=== PATIENT | female | born 1980 | race Caucasian/White ===

== ENCOUNTER 2016-08-18 14:10 | Emergency (ER) | payer OTHER ==
[2016-08-18] MEDS ORDERED: RX INFO: IV CONTRAST WAS GIVEN 1 EACH MISC MISCELLANE PRN (14:25)
[2016-08-18 14:49] VITALS: RESP 16
[2016-08-18 14:49] LABS: Basophils # (A) 0.2 k/uL (0-0.2); Basophils % (A) 2 %; CH 29.2; CHCM 34.7; Eosinophils # (A) 0.2 k/uL (0-0.7); Eosinophils % (A) 3 %; HCT 37.6 % (34.0-46.0); HDW 2.88; HGB 12.4 gm/dL (11.4-16.0); Luc # (Auto) 0.17; Luc % (Auto) 2; Lymphocytes # (A) 3.1 k/uL (1.0-4.8); Lymphocytes % (A) 43 %; MCHC 33.1 g/dL (31.0-37.0); MCV 84.5 fL (80.0-100.0); Mean Platelet Volume 6.8; Monocytes # (A) 0.4 k/uL (0-1.0); Monocytes % (A) 6 %; Neutrophils # (A) 3.2 k/uL (1.3-7.7); Neutrophils % (A) 44 %; RBC 4.44 m/uL (3.80-5.40); RDW 13.1 % (11.5-15.5); WBC 7.2 k/uL (3.8-10.6); WBC (Perox) 7.29
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
[2016-08-18 14:56] LABS: INR 1.1 (<1.1); Partial Thromboplastin Time 22.3 sec (22.0-30.0); Prothrombin Time 10.6 sec (9.0-12.0)
[2016-08-18 14:57] LABS: ALT 82 U/L (9-52); AST 135 U/L (14-36); Alcohol <10 mg/dL; Alkaline Phosphatase 66 U/L (38-126); Amylase <30 U/L (30-110); Anion Gap 10 mmol/L; Blood Urea Nitrogen 17 mg/dL (7-17); Calcium 9.3 mg/dL (8.4-10.2); Carbon Dioxide 25 mmol/L (22-30); Chloride 107 mmol/L (98-107); Glucose 100 mg/dL (74-99); Non-African American GFR(MDRD) >60 (>60 ml/min/1.73 sqM); Potassium 4.4 mmol/L (3.5-5.1); Sodium 142 mmol/L (137-145); Total Bilirubin 0.6 mg/dL (0.2-1.3); Total Protein 7.5 g/dL (6.3-8.2)
--- NOTE | 2016-08-18 14:58 | XR ---
EXAMINATION TYPE: XR pelvis AP view DATE OF EXAM: 08/18/2016 2:29 PM COMPARISON: NONE HISTORY: Pain The osseous structures are intact and the joint spaces are preserved. No acute fracture is seen. Vi sualized bowel gas pattern is nonspecific. Postsurgical change lower lumbar spine. IMPRESSION: 1. No acute fracture.
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
[2016-08-18] MEDS ORDERED: HYDROmorphone 1 MG/ML 1 ML SYRINGE IVP STA ×2 (15:17→16:42)
[2016-08-18 15:20] LABS: Troponin I 0.013 ng/mL (0.000-0.034)
[2016-08-18 15:23] LABS: Creatine Kinase MB 11.1 ng/mL (0.0-2.4)
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
[2016-08-18 17:26] VITALS: BP 107/56; PULSE 89; TEMP 97.6
== END 2016-08-18 17:25 | disposition home or self-care (01) ==
LOC: EC 14:10
DX: S39.91XA Unspecified injury of abdomen, initial encounter (principal); F17.200 Nicotine dependence, unspecified, uncomplicated; Z87.442 Personal history of urinary calculi; Z88.5 Allergy status to narcotic agent; V43.52XA Car driver injured in collision with other type car in traffic accident, initial encounter; Y92.410 Unspecified street and highway as the place of occurrence of the external cause
CPT/HCPCS: 36415; 93005; 86900; 86901; 80053; 82150; 82550; 82553; 83690; 84484; 85025; 85610; 85730; 86850; 80320; 71010; 72100; 72170; 74177; 99284; 96374; 96376; Q9967; J1170

== ENCOUNTER → 2016-08-31 | Outpatient (CLI) | payer OTHER ==
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
== END | disposition home or self-care (01) ==
LOC: RADCTMAIN 11:36
PROVIDERS: ATTEND Family Medicine
DX: R07.81 Pleurodynia (principal)
CPT/HCPCS: 71020; 71260; Q9967

== ENCOUNTER 2017-07-16 17:02 | Emergency (ER) | payer OTHER ==
[2017-07-16 17:10] VITALS: BP 130/61; PULSE 75; RESP 16; TEMP 98.1
--- NOTE | 2017-07-16 17:38 | ED ---
ENT HPI - General Chief complaint: ENT Stated complaint: sore throat Time Seen by Provider: 07/16/17 17:13 Source: patient, RN notes reviewed Mode of arrival: ambulatory Limitations: no limitations - History of Present Illness Initial comments: This is a 36-year-old female who presents to the emergency department with chief complaint of sore throat. Patient states that she has had left-sided sore throat for the past 4 days. She states that she has difficulty eating and drinking due to the pain. Patient states that she has also had nasal congestion. She denies fevers or chills. She denies cough or shortness of breath. She states a coworker was recently diagnosed with tonsillitis. Denies chest pain, abdominal pain, nausea or vomiting, constipation or diarrhea, dysuria or hematuria, numbness or tingling, headache or vision changes. - Related Data Home Medications Medication Instructions Recorded Confirmed No Known Home Medications [No 07/16/17 07/16/17 Known Home Medications] Allergies Allergy/AdvReac Type Severity Reaction Status Date / Time morphine Allergy Itching Verified 07/16/17 17:11 codeine AdvReac Severe Makes Verified 07/16/17 17:11 patient blackout Review of Systems ROS Statement: Those systems with pertinent positive or pertinent negative responses have been documented in the HPI. ROS Other: All systems not noted in ROS Statement are negative. Past Medical History Past Medical History: No Reported History Additional Past Medical History / Comment(s): kidney stones, Gestational DM, back pain History of Any Multi-Drug Resistant Organisms: None Reported Past Surgical History: Back Surgery Additional Past Surgical History / Comment(s): 3x back laminectomy Past Anesthesia/Blood Transfusion Reactions: No Reported Reaction Past Psychological History: No Psychological Hx Reported Smoking Status: Former smoker Past Alcohol Use History: None Reported Past Drug Use History: None Reported General Exam - General Exam Comments Initial Comments: General: Awake and alert, well-developed; in no apparent distress. HEENT: Head atraumatic, normocephalic. Pupils are equal, round and reactive to light. Extraocular movements intact. Oropharynx moist without erythema or exudate. On left-sided palattoglossal arch is a small shallow ulcer. Bilateral TMs are pearly without effusion. Neck: Supple. Normal ROM. Tender anterior cervical lymphadenopathy. Cardiovascular: Regular rate and rhythm. No murmurs, rubs or gallops. Chest symmetrical. Respiratory: Lungs clear to auscultation bilaterally. No wheezes, rales or rhonchi. Normal respiratory effort with no use of accessory muscles. Musculoskeletal: Normal ROM, no tenderness bilateral upper and lower chimneys. Ambulating normally. Skin: [place], warm and dry without rashes or lesions. Neurological: Alert and oriented x3. CN II-XII grossly intact. Speech is fluent and answers are appropriate. No focal neuro deficits. Psychiatric: Normal mood and affect. No overt signs of depression or anxiety noted. Limitations: no limitations Course Vital Signs 07/16/17 17:06 Temperature 98.1 F Pulse Rate 75 Respiratory 16 Rate Blood Pressure 130/61 O2 Sat by Pulse 100 Oximetry Medical Decision Making - Medical Decision Making This is a 36-year-old female who presents to the emergency department with chief complaint of left-sided sore throat. Patient also complains of nasal congestion. Denies any fevers or chills. On physical examination there is a left-sided aphthous ulcer. Rapid strep was negative. Patient likely suffering from viral illness. She will be discharged home with recommendation to return to the emergency department if symptoms worsen. Patient is in agreement and voices understanding. All questions were answered. Disposition Clinical Impression: Aphthous ulcer of mouth Disposition: HOME SELF-CARE Condition: Good Instructions: Wiliam Rodriguez (ED) Additional Instructions: Please follow up with primary care provider within 1-2 days. Return to emergency department if symptoms should worsen or any concerns arise. Referrals: Yue Mckeon MD [Primary Care Provider] - 1-2 days Time of Disposition: 18:09
== END 2017-07-16 18:20 | disposition home or self-care (01) ==
LOC: EC 17:02
DX: K12.0 Recurrent oral aphthae (principal); Z87.891 Personal history of nicotine dependence; Z88.5 Allergy status to narcotic agent
CPT/HCPCS: 87081; 87430; 99283

== ENCOUNTER → 2017-08-30 | Outpatient (CLI) | payer OTHER ==
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
== END | disposition home or self-care (01) ==
LOC: RADCTMAIN 11:58
PROVIDERS: ATTEND Psychiatry & Neurology Neurology
DX: M48.061 Spinal stenosis, lumbar region without neurogenic claudication (principal); M51.26 Other intervertebral disc displacement, lumbar region; M24.28 Disorder of ligament, vertebrae
CPT/HCPCS: 72131

== ENCOUNTER 2017-09-10 19:49 | Emergency (ER) | payer OTHER ==
[2017-09-10 20:21] VITALS: BP 134/74; PULSE 72; RESP 18; TEMP 98.5
--- NOTE | 2017-09-10 20:55 | ED ---
Back Pain HPI - General Chief Complaint: Back Pain/Injury Stated Complaint: Back Pain Time Seen by Provider: 09/10/17 20:54 Source: patient Limitations: no limitations - History of Present Illness Initial Comments: Patient presents with exacerbation of her chronic low back pain. Patient states she has a history of lumbar fusion done 2 years ago. Patient states back pain has been worsening over the past 2 weeks. Patient states she saw her neurologist who ordered a computed tomography scan, however she has not seen the results of the CT yet. Patient states neurologist wanted her to get computed tomography scan prior to discussing symptoms with her neurosurgeon. Patient denies any recent trauma. Patient denies fevers, chills, urinary retention, bowel incontinence, saddle anesthesia. Patient states she has chronic decreased sensation in her left leg, no change in sensation. Denies any new numbness or weakness. Patient states she takes [place] at home for pain, however she ran out of them today. MD Complaint: back pain - Related Data Home Medications Medication Instructions Recorded Confirmed Butal[place]/APAP/Caff 50-325-40Mg 1 tab PO TID PRN 09/10/17 09/10/17 [Fioricet 50-325-40] DULoxetine HCL [Cymbalta] 30 mg PO HS 09/10/17 09/10/17 HYDROcodone/APAP 10-325MG [[place] 1 tab PO TID PRN 09/10/17 09/10/17 10-325] Naproxen 500 mg PO BID PRN 09/10/17 09/10/17 Previous Rx's Medication Instructions Recorded predniSONE 40 mg PO DAILY 5 Days #10 tab 09/10/17 Allergies Allergy/AdvReac Type Severity Reaction Status Date / Time morphine Allergy Itching Verified 09/10/17 20:56 codeine AdvReac Severe Makes Verified 09/10/17 20:56 patient blackout Review of Systems ROS Statement: Those systems with pertinent positive or pertinent negative responses have been documented in the HPI. Constitutional: Denies: fever, chills, weakness ENT: Denies: congestion Respiratory: Denies: dyspnea Cardiovascular: Denies: chest pain Endocrine: Denies: fatigue Gastrointestinal: Denies: abdominal pain, nausea, vomiting, diarrhea, constipation Genitourinary: Denies: urgency, dysuria, frequency, hematuria Musculoskeletal: Reports: back pain. Denies: joint swelling, arthralgia, myalgia Skin: Denies: rash, change in color Neurological: Reports: numbness (Chronic decreased sensation left leg). Denies : weakness, confusion, abnormal gait Past Medical History Past Medical History: No Reported History Additional Past Medical History / Comment(s): kidney stones, Gestational DM, back pain History of Any Multi-Drug Resistant Organisms: None Reported Past Surgical History: Back Surgery Additional Past Surgical History / Comment(s): 3x back laminectomy Past Anesthesia/Blood Transfusion Reactions: No Reported Reaction Past Psychological History: No Psychological Hx Reported Smoking Status: Former smoker Past Alcohol Use History: None Reported Past Drug Use History: None Reported General Exam - General Exam Comments Initial Comments: Sitting up on bed. No acute distress. Conversing normally. Calm, pleasant. Well appearing. Does not appear in pain. Limitations: no limitations General appearance: alert, in no apparent distress Head exam: Present: atraumatic, normocephalic Eye exam: Present: normal appearance, PERRL, EOMI ENT exam: Present: mucous membranes moist Neck exam: Present: normal inspection Respiratory exam: Present: normal lung sounds bilaterally. Absent: respiratory distress, wheezes, rales, rhonchi, stridor Cardiovascular Exam: Present: regular rate, normal rhythm GI/Abdominal exam: Present: soft. Absent: distended, tenderness, guarding, rebound Extremities exam: Present: normal inspection, full ROM, other (No gross deformities) Back exam: Present: normal inspection, other (No midline tenderness or paravertebral tenderness. Flexion extension rotation intact without exacerbation of pain. No step-offs appreciated.). Absent: tenderness, paraspinal tenderness, vertebral tenderness Neurological exam: Present: alert, oriented X3, other (Muscle strength 5 out of 5 in lower extremity is. Subjective decreased sensation left lower extremity. Normal sensation right lower family. Patient able to return ER without difficulty.) Psychiatric exam: Present: normal affect, normal mood Skin exam: Present: warm, dry, intact, normal color. Absent: rash Course Vital Signs 09/10/17 20:18 Temperature 98.5 F Pulse Rate 72 Respiratory 18 Rate Blood Pressure 134/74 O2 Sat by Pulse 99 Oximetry Medical Decision Making - Medical Decision Making CT done August 30 shows posterior endplate spurring with loss of disc height of L5-S1, stenosis is not present. Mild canal narrowing L4-L5 secondary to mild disc bulge and ligamentum flavum laxity, nonobstructing mid kidney right renal stone Patient updated with computed tomography scan results, provided copy of CT results. Discussed patient's symptoms, patient with no acute red flag symptoms. This is the exact same recurrent back pain patient always has. Patient out of her [place]. We'll give steroids and [place] in the ER. Discussed need for follow-up her neurosurgeon regarding CT results, discuss possible MRI, possible surgical interventions. We'll give prescription of steroids. Patient to follow up with her prescribing physician for refill of her [place]. Patient understands and agrees. His comfortably discharge home. Return to ER for new or worsening symptoms. Disposition Clinical Impression: Chronic back pain Disposition: HOME SELF-CARE Condition: Good Instructions: Chronic Back Pain (ED) Additional Instructions: Follow-up with your neurologist and neurosurgeon regarding results of her computed tomography scan, discuss possible MRI, discussed surgical intervention options. Return to ER if new or worsening symptoms. Prescriptions: predniSONE 40 mg PO DAILY 5 Days #10 tab Referrals: Yue Mckeon MD [Primary Care Provider] - 1-2 days
[2017-09-10] MEDS ORDERED: HYDROcodone/APAP 7.5-325MG 1 EACH TAB PO ONE (21:13)
[2017-09-10] MEDS ORDERED: predniSONE 20 MG TAB PO STA (21:13)
== END 2017-09-10 21:51 | disposition home or self-care (01) ==
LOC: EC 19:49
DX: G89.29 Other chronic pain (principal); M54.5 Low back pain; M48.061 Spinal stenosis, lumbar region without neurogenic claudication; M51.26 Other intervertebral disc displacement, lumbar region; N20.0 Calculus of kidney; R29.898 Other symptoms and signs involving the musculoskeletal system; Z87.891 Personal history of nicotine dependence; Z79.899 Other long term (current) drug therapy; Z88.5 Allergy status to narcotic agent; Z98.1 Arthrodesis status
CPT/HCPCS: 99283; J7512

== ENCOUNTER 2017-11-06 19:34 | Emergency (ER) | payer OTHER ==
[2017-11-06 20:02] VITALS: BP 138/62; PULSE 89; RESP 18; TEMP 99.1
[2017-11-06] MEDS ORDERED: diphenhydrAMINE 50 MG/ML 1 ML VIAL IVP STA (20:45)
[2017-11-06] MEDS ORDERED: KETOROLAC 30 MG/ML 1 ML VIAL IVP STA (20:45)
[2017-11-06] MEDS ORDERED: SODIUM CHLORIDE 0.9% 1,000 ML IV STA (20:45)
[2017-11-06] MEDS ORDERED: METOCLOPRAMIDE 5 MG/ML 2 ML VIAL IVP STA (20:45)
--- NOTE | 2017-11-06 21:13 | ED ---
General Adult HPI - General Chief complaint: Recheck/Abnormal Lab/Rx Stated complaint: poss kidney stone & migraine Time Seen by Provider: 11/06/17 20:35 Source: patient, RN notes reviewed Mode of arrival: ambulatory Limitations: no limitations - History of Present Illness Initial comments: This is a 36-year-old female presents to the emergency department with chief complaint of migraine for the past 3 days. She states that she gets a couple of migraines a month and has seen neurology for this. She states that her current migraine is no different from her usual ones. She states that she has tried taking naproxen and Fioricet with minimal relief. She states that her headache is located in the frontal forehead and is constant and throbbing. She admits to associated nausea but denies any vomiting. Denies fevers or chills, abdominal pain, diarrhea or constipation, dysuria or hematuria. Patient states that she was recently diagnosed with a kidney stone. She states that this morning she developed some right-sided back pain. - Related Data Home Medications Medication Instructions Recorded Confirmed Butalb/APAP/Caff 50-325-40Mg 1 tab PO TID PRN 09/10/17 11/06/17 [Fioricet 50-325-40] HYDROcodone/APAP 10-325MG [[place] 1 tab PO TID PRN 09/10/17 11/06/17 10-325] Naproxen 500 mg PO BID PRN 09/10/17 11/06/17 Allergies Allergy/AdvReac Type Severity Reaction Status Date / Time morphine Allergy Itching Verified 11/06/17 20:39 codeine AdvReac Severe Makes Verified 11/06/17 20:39 patient blackout Review of Systems ROS Statement: Those systems with pertinent positive or pertinent negative responses have been documented in the HPI. ROS Other: All systems not noted in ROS Statement are negative. Past Medical History Past Medical History: No Reported History Additional Past Medical History / Comment(s): kidney stones, Gestational DM, back pain History of Any Multi-Drug Resistant Organisms: None Reported Past Surgical History: Back Surgery Additional Past Surgical History / Comment(s): 3x back laminectomy, fusion Past Anesthesia/Blood Transfusion Reactions: No Reported Reaction Past Psychological History: No Psychological Hx Reported Smoking Status: Former smoker Past Alcohol Use History: None Reported Past Drug Use History: None Reported General Exam - General Exam Comments Initial Comments: General: Awake and alert, well-developed; in no apparent distress. HEENT: Head atraumatic, normocephalic. Pupils are equal, round and reactive to light. Extraocular movements intact. Oropharynx moist without erythema or exudate. Neck: Supple. Normal ROM. Cardiovascular: Regular rate and rhythm. No murmurs, rubs or gallops. Chest symmetrical. Respiratory: Lungs clear to auscultation bilaterally. No wheezes, rales or rhonchi. Normal respiratory effort with no use of accessory muscles. Abdomen: Soft, non-tender, non-distended. No rigidity, rebound or guarding. Normal bowel sounds in all 4 quadrants. No CVA tenderness bilaterally. Musculoskeletal: Normal ROM, no tenderness bilateral upper and lower extremities. Ambulating normally. No tenderness on palpation of the vertebra or paraspinal muscles. Skin: [place], warm and dry without rashes or lesions. Neurological: Alert and oriented x3. CN II-XII grossly intact. Speech is fluent and answers are appropriate. No focal neuro deficits. Psychiatric: Normal mood and affect. No overt signs of depression or anxiety noted. Limitations: no limitations Course Vital Signs 11/06/17 19:58 Temperature 99.1 F Pulse Rate 89 Respiratory 18 Rate Blood Pressure 138/62 O2 Sat by Pulse 97 Oximetry Medical Decision Making - Medical Decision Making 36-year-old female who presented to the emergency department with chief complaint of migraine. Also states that she was recently diagnosed with a right kidney stone and does have mild flank pain that started this morning. UA was obtained and did reveal small amount of blood. Sent for culture. Patient given headache cocktail and antiemetics. She states that her symptoms have improved. Vital signs are stable and she is in no acute distress. She will be discharged home at this time. Return parameters were discussed. Patient is in agreement with plan and voices understanding. All questions were answered. - Lab Data Lab Results 11/06/17 Range/Units 21:46 Urine Color Yellow Urine Appearance Clear (Clear) Urine pH 5.5 (5.0-8.0) Ur Specific [place] 1.031 (1.001-1.035) Urine Protein Negative (Negative) Urine Glucose (UA) Negative (Negative) Urine Ketones Negative (Negative) Urine Blood Small H (Negative) Urine Nitrite Negative (Negative) Urine Bilirubin Negative (Negative) Urine Urobilinogen 2.0 (<2.0) mg/dL Ur Leukocyte Esterase Moderate H (Negative) Urine RBC 1 (0-5) /hpf Urine WBC 10 H (0-5) /hpf Ur Squamous Epith Cells 2 (0-4) /hpf Urine Mucus Rare H (None) /hpf Disposition Clinical Impression: Acute headache Disposition: HOME SELF-CARE Condition: Good Instructions: Migraine Headache (ED) Additional Instructions: Please follow up with primary care provider within 1-2 days. Return to emergency department if symptoms should worsen or any concerns arise. Is patient prescribed a controlled substance at discharge?: No Referrals: Yue Mckeon MD [Primary Care Provider] - 1-2 days Time of Disposition: 22:59
[2017-11-06 22:03] LABS: Appearance,Urine Clear (Clear); Bilirubin,Urine Negative (Negative); Blood,Urine Small (Negative); Color,Urine Yellow; Glucose,Urine (UA) Negative (Negative); Ketones,Urine Negative (Negative); Leukocyte Esterase,Urine Moderate (Negative); Mucus,Urine Rare /hpf; Nitrite,Urine Negative (Negative); PH, Urine 5.5 (5.0-8.0); Protein,Urine Negative (Negative); RBC,Urine 1 /hpf (0-5); Specific Gravity,Urine 1.031 (1.001-1.035); Squamous Epithelial Cell,Urine 2 /hpf (0-4); WBC,Urine 10 /hpf (0-5)
== END 2017-11-06 23:15 | disposition home or self-care (01) ==
LOC: EC 19:34
DX: R51 Headache (principal); M54.9 Dorsalgia, unspecified; R10.9 Unspecified abdominal pain; Z87.442 Personal history of urinary calculi; Z98.890 Other specified postprocedural states; Z87.891 Personal history of nicotine dependence; Z88.5 Allergy status to narcotic agent
CPT/HCPCS: 99283; 96374; 96375 ×2; 96361; 81001; J1200; J2765; J1885

== ENCOUNTER 2018-08-20 11:55 | Emergency (ER) | payer OTHER ==
[2018-08-20 12:14] VITALS: BP 120/58; PULSE 66; RESP 18; TEMP 97.5
[2018-08-20] MEDS ORDERED: KETOROLAC 60 MG/2 ML VIAL IM STA (12:29)
[2018-08-20] MEDS ORDERED: DIAZEPAM 5 MG TAB PO STA (12:29)
--- NOTE | 2018-08-20 12:36 | ED ---
General Adult HPI - General Chief complaint: Back Pain/Injury Stated complaint: Back injury Time Seen by Provider: 08/20/18 12:19 Source: patient, RN notes reviewed Mode of arrival: wheelchair Limitations: no limitations - History of Present Illness Initial comments: Patient's a 37-year-old female with significant past medical history for chronic low back pain, presenting to the emergency room today with a chief complaint of increased lower back pain that started after shoveling snow last night. Patient denies any specific injury or trauma. She does admit that she' s had previous back surgeries was concerned. She states she used to take [place] but is not currently obvious that she did not get prescriptions past month and is trying to follow-up the family doctor. Patient states that there is no bowel or bladder incontinence retention. Denies any saddle anesthesia. Denies any radicular pain. States pain is worse with movements. States pain started after shoveling was no specific injury. Patient denies any recent fever, chills , shortness of breath, chest pain, abdominal pain, nausea or vomiting, numbness or tingling, headaches or visual changes, or any other complaints. - Related Data Home Medications Medication Instructions Recorded Confirmed Butalb/APAP/Caff 50-325-40Mg 1 tab PO TID PRN 09/10/17 11/06/17 [Fioricet 50-325-40] HYDROcodone/APAP 10-325MG [[place] 1 tab PO TID PRN 09/10/17 11/06/17 10-325] Naproxen 500 mg PO BID PRN 09/10/17 11/06/17 Previous Rx's Medication Instructions Recorded Cyclobenzaprine [Flexeril] 10 mg PO TID #20 tab 08/20/18 Allergies Allergy/AdvReac Type Severity Reaction Status Date / Time morphine Allergy Itching Verified 11/06/17 20:39 codeine AdvReac Severe Makes Verified 11/06/17 20:39 patient blackout Review of Systems ROS Statement: Those systems with pertinent positive or pertinent negative responses have been documented in the HPI. ROS Other: All systems not noted in ROS Statement are negative. Past Medical History Past Medical History: No Reported History Additional Past Medical History / Comment(s): chronic back pain History of Any Multi-Drug Resistant Organisms: None Reported Past Surgical History: Back Surgery Additional Past Surgical History / Comment(s): 3x back laminectomy, fusion Past Anesthesia/Blood Transfusion Reactions: No Reported Reaction Past Psychological History: No Psychological Hx Reported Smoking Status: Former smoker Past Alcohol Use History: None Reported Past Drug Use History: None Reported General Exam - General Exam Comments Initial Comments: General: The patient is awake and alert, in no distress, and does not appear acutely ill. Eye: There is normal conjunctiva bilaterally. No signs of icterus. Ears, nose, mouth and throat: There are moist mucous membranes and no oral lesions. Neck: The neck is supple, there is no tenderness or JVD. Musculoskeletal: Normal ROM. Normal appearance of thoracic lumbar spine with no step-off deformity. Patient does have tenderness at L2-L3. Neurological: A&O x 3. CN II-XII intact, There are no obvious motor or sensory deficits. Coordination appears grossly intact. Speech is normal. Skin: Skin is warm and dry and no rashes or lesions are noted. Psychiatric: Cooperative, appropriate mood & affect, normal judgment. Limitations: no limitations Course Vital Signs 08/20/18 12:07 Temperature 97.5 F L Pulse Rate 66 Respiratory 18 Rate Blood Pressure 120/58 O2 Sat by Pulse 100 Oximetry Medical Decision Making - Medical Decision Making X-rays reviewed negative for any acute abnormality. Results were discussed with patient. She does admit to improvement after Toradol, Valium here in the emergency room. Patient will be given prescription for muscle relaxer advised may make her drowsy. Advised continue her naproxen that she has at home. Advised follow-up the family doctor over the symptoms. Advised return for any other concerns. Disposition Clinical Impression: Acute low back pain Disposition: HOME SELF-CARE Condition: Good Instructions (If sedation given, give patient instructions): Acute Low Back Pain (ED) Additional Instructions: Please use medication as discussed. Please follow-up with family doctor in the next 2 days of symptoms have not improved. Please return to emergency room if the symptoms increase or worsen or for any other concerns. Prescriptions: Cyclobenzaprine [Flexeril] 10 mg PO TID #20 tab Is patient prescribed a controlled substance at d/c from ED?: No Referrals: None,Stated [Primary Care Provider] - 1-2 days Time of Disposition: 13:19
--- NOTE | 2018-08-20 12:55 | XR ---
EXAMINATION TYPE: XR lumbar spine 2 or 3V DATE OF EXAM: 08/20/2018 CLINICAL HISTORY: Back pain since injury last night. History of prior back surgery. TECHNIQUE: Frontal and lateral images of the lumbar spine are obtained. COMPARISON: Lumbar spine x-ray August 18, 2016. CT lumbar spine August 30, 2017 FINDINGS: There are 5 lumbar type vertebral bodies redemonstrated. The lumbar spine redemonstrates satisfactory alignment without evidence of acute fracture or dislocation. Vertebral body heights and disk space heights are within normal limits above surgical level. Posterior interpedicular rods and s crews with artificial disc material L5-S1 level is redemonstrated, some ossific fusion at this level is again seen. The overlying soft tissue appears unremarkable. IMPRESSION: No acute fracture or dislocation is seen in the lumbar spine. No significant change from prior studies.
== END 2018-08-20 13:33 | disposition home or self-care (01) ==
LOC: EC 11:55
DX: M54.5 Low back pain (principal); Z87.891 Personal history of nicotine dependence; Z98.1 Arthrodesis status; Z98.890 Other specified postprocedural states; Z88.5 Allergy status to narcotic agent; X58.XXXA Exposure to other specified factors, initial encounter; Y92.89 Other specified places as the place of occurrence of the external cause; Y93.H1 Activity, digging, shoveling and raking
CPT/HCPCS: 72100; 96372; 99283

== ENCOUNTER 2019-03-02 12:35 | Emergency (ER) | payer OTHER ==
[2019-03-02 12:49] VITALS: TEMP 97.9
[2019-03-02] MEDS ORDERED: SODIUM CHLORIDE 0.9% 500 ML 500 ML IV ONE (13:06)
[2019-03-02] MEDS ORDERED: KETOROLAC 30 MG/ML 1 ML VIAL IVP STA (13:07)
[2019-03-02] MEDS ORDERED: diphenhydrAMINE 50 MG/ML 1 ML VIAL IVP STA (13:07)
[2019-03-02] MEDS ORDERED: METOCLOPRAMIDE 5 MG/ML 2 ML VIAL IVP STA (13:07)
--- NOTE | 2019-03-02 13:27 | ED ---
Headache HPI - General Chief Complaint: Headache Stated Complaint: Headache Time Seen by Provider: 03/02/19 12:52 Source: patient, RN notes reviewed Mode of arrival: ambulatory Limitations: no limitations - History of Present Illness Initial Comments: 38-year-old female presents emergency Department chief complaint migraine headache. Patient just started yesterday. Patient states symptoms worsened today. She does normally take medication at nighttime for migraines on with naproxen. Patient states she took it earlier today with no relief of symptoms. Patient states that she has photophobia, nausea no vomiting no focal weakness. She states this is her typical headache at the worse headache of her life. Denies fevers or chills no neck pain or neck stiffness. Patient offers no other complaints. Patient has known ALLERGY to morphine and codeine. - Related Data Home Medications Medication Instructions Recorded Confirmed Butalb/APAP/Caff 50-325-40Mg 1 tab PO TID PRN 09/10/17 11/06/17 [Fioricet 50-325-40] HYDROcodone/APAP 10-325MG [[place] 1 tab PO TID PRN 09/10/17 11/06/17 10-325] Naproxen 500 mg PO BID PRN 09/10/17 11/06/17 Previous Rx's Medication Instructions Recorded Cyclobenzaprine [Flexeril] 10 mg PO TID #20 tab 08/20/18 Allergies Allergy/AdvReac Type Severity Reaction Status Date / Time morphine Allergy Itching Verified 03/02/19 12:49 codeine AdvReac Severe Makes Verified 03/02/19 12:49 patient blackout Review of Systems ROS Statement: Those systems with pertinent positive or pertinent negative responses have been documented in the HPI. ROS Other: All systems not noted in ROS Statement are negative. Past Medical History Past Medical History: No Reported History Additional Past Medical History / Comment(s): chronic back pain History of Any Multi-Drug Resistant Organisms: None Reported Past Surgical History: Back Surgery Additional Past Surgical History / Comment(s): 3x back laminectomy, fusion Past Anesthesia/Blood Transfusion Reactions: No Reported Reaction Past Psychological History: No Psychological Hx Reported Smoking Status: Former smoker Past Alcohol Use History: None Reported Past Drug Use History: None Reported General Exam Limitations: no limitations General appearance: alert, in no apparent distress Head exam: Present: atraumatic, normocephalic, normal inspection Eye exam: Present: normal appearance, PERRL, EOMI. Absent: scleral icterus, conjunctival injection, periorbital swelling ENT exam: Present: normal exam, normal oropharynx, mucous membranes moist Neck exam: Present: normal inspection, full ROM. Absent: tenderness, meningismus, lymphadenopathy Respiratory exam: Present: normal lung sounds bilaterally. Absent: respiratory distress, wheezes, rales, rhonchi, stridor Cardiovascular Exam: Present: regular rate, normal rhythm, normal heart sounds. Absent: systolic murmur, diastolic murmur, rubs, gallop, clicks Neurological exam: Present: alert, oriented X3, CN II-XII intact, reflexes normal. Absent: motor sensory deficit Skin exam: Present: warm, dry, intact, normal color. Absent: rash Course Vital Signs 03/02/19 12:47 Temperature 97.9 F Pulse Rate 62 Respiratory 18 Rate Blood Pressure 141/90 O2 Sat by Pulse 100 Oximetry Medical Decision Making - Medical Decision Making 38-year-old female presented for headache. Patient has history of migraines and this was her typical headache. Patient given Toradol Benadryl Reglan and IV fluids symptoms have resolved. Patient has a normal neuro exam patient will be discharged. Disposition Clinical Impression: Migraine Disposition: HOME SELF-CARE Condition: Stable Instructions (If sedation given, give patient instructions): Acute Headache (ED) Additional Instructions: Please return to the Emergency Department if symptoms worsen or any other concerns. Is patient prescribed a controlled substance at d/c from ED?: No Referrals: Travis Bell MD [Primary Care Provider] - 1-2 days Time of Disposition: 14:21
[2019-03-02 14:37] VITALS: BP 126/73; PULSE 76; RESP 16
== END 2019-03-02 14:32 | disposition home or self-care (01) ==
LOC: EC 12:35
DX: G43.909 Migraine, unspecified, not intractable, without status migrainosus (principal); Z87.891 Personal history of nicotine dependence; Z88.5 Allergy status to narcotic agent
CPT/HCPCS: 99283; 96374; 96375 ×2; J1200; J2765; J1885

== ENCOUNTER 2019-07-16 12:56 | Emergency (ER) | payer OTHER ==
[2019-07-16] MEDS ORDERED: SODIUM CHLORIDE 0.9% 1,000 ML IV ONE (13:39)
[2019-07-16] MEDS ORDERED: KETOROLAC 30 MG/ML 1 ML VIAL IVP STA (13:39)
--- NOTE | 2019-07-16 13:57 | ED ---
General Adult HPI - General Chief complaint: Recheck/Abnormal Lab/Rx Stated complaint: Body aches/weakness Time Seen by Provider: 07/16/19 13:24 Source: patient, RN notes reviewed, old records reviewed Mode of arrival: ambulatory Limitations: no limitations - History of Present Illness Initial comments: Patient's a 38-year-old female presented today for evaluation for concern for body aches. Does report she's been having cough. Intermittent fevers for the past 7 days. She is concerned this the possibly is related to her new migraine medication. She madyson fever today. - Related Data Home Medications Medication Instructions Recorded Confirmed [place]al[place]/APAP/Caff 50-325-40Mg 1 tab PO TID PRN 09/10/17 11/06/17 [Fioricet 50-325-40] HYDROcodone/APAP 10-325MG [[place] 1 tab PO TID PRN 09/10/17 11/06/17 10-325] Naproxen 500 mg PO BID PRN 09/10/17 11/06/17 Previous Rx's Medication Instructions Recorded Cyclobenzaprine [Flexeril] 10 mg PO TID #20 tab 08/20/18 Cephalexin [Keflex] 500 mg PO Q6HR 3 Days #12 cap 07/16/19 Allergies Allergy/AdvReac Type Severity Reaction Status Date / Time morphine Allergy Itching Verified 07/16/19 13:22 codeine AdvReac Severe Makes Verified 07/16/19 13:22 patient blackout Review of Systems ROS Statement: Those systems with pertinent positive or pertinent negative responses have been documented in the HPI. ROS Other: All systems not noted in ROS Statement are negative. Past Medical History Past Medical History: No Reported History Additional Past Medical History / Comment(s): chronic back pain History of Any Multi-Drug Resistant Organisms: None Reported Past Surgical History: Back Surgery Additional Past Surgical History / Comment(s): 3x back laminectomy, fusion Past Anesthesia/Blood Transfusion Reactions: No Reported Reaction Past Psychological History: No Psychological Hx Reported Smoking Status: Former smoker Past Alcohol Use History: None Reported Past Drug Use History: None Reported General Exam - General Exam Comments Initial Comments: 38 year old female, no distress. Limitations: no limitations General appearance: alert, in no apparent distress Head exam: Present: atraumatic, normocephalic, normal inspection Eye exam: Present: normal appearance, PERRL, EOMI. Absent: scleral icterus, conjunctival injection, periorbital swelling ENT exam: Present: normal exam, mucous membranes moist Neck exam: Present: normal inspection. Absent: tenderness, meningismus, lymphadenopathy Respiratory exam: Present: normal lung sounds bilaterally. Absent: respiratory distress, wheezes, rales, rhonchi, stridor Cardiovascular Exam: Present: regular rate, normal rhythm, normal heart sounds. Absent: systolic murmur, diastolic murmur, rubs, gallop, clicks GI/Abdominal exam: Present: soft, normal bowel sounds. Absent: distended, tenderness, guarding, rebound, rigid Extremities exam: Present: normal inspection, full ROM, normal capillary refill. Absent: tenderness, pedal edema, joint swelling, calf tenderness Back exam: Present: normal inspection Neurological exam: Present: alert, oriented X3, CN II-XII intact Psychiatric exam: Present: normal affect, normal mood Skin exam: Present: warm, dry, intact, normal color. Absent: rash Course Vital Signs 07/16/19 07/16/19 07/16/19 13:19 13:40 15:40 Temperature 98.3 F Pulse Rate 86 81 Respiratory 20 20 16 Rate Blood Pressure 107/72 115/78 O2 Sat by Pulse 99 98 Oximetry 07/16/19 16:16 Temperature 98.2 F Pulse Rate 84 Respiratory 18 Rate Blood Pressure 116/78 O2 Sat by Pulse 98 Oximetry Medical Decision Making - Medical Decision Making 38 year old female with diffuse body aches, fevers and dry cough for 7 days. She was givne IV fluids, toradol. She has improvement of symptoms of aches. She has negative flu, blood work is unremarkable. UAshows mild bacteruria, discussed Tx for UTI. Discussed PCP follow up, and that patient may still be dealing with viral syndrome. - Lab Data Result diagrams: 07/16/19 13:56 07/16/19 13:56 Lab Results 07/16/19 07/16/19 07/16/19 Range/Units 13:56 13:56 13:56 WBC 6.6 (3.8-10.6) k/uL RBC 4.82 (3.80-5.40) m/uL Hgb 13.9 (11.4-16.0) gm/dL Hct 41.7 (34.0-46.0) % MCV 86.5 (80.0-100.0) fL MCH 28.8 (25.0-35.0) pg MCHC 33.3 (31.0-37.0) g/dL RDW 12.0 (11.5-15.5) % Plt Count 221 (150-450) k/uL Neutrophils % 67 % Lymphocytes % 22 % Monocytes % 5 % Eosinophils % 1 % Basophils % 3 % Neutrophils # 4.4 (1.3-7.7) k/uL Lymphocytes # 1.4 (1.0-4.8) k/uL Monocytes # 0.3 (0-1.0) k/uL Eosinophils # 0.1 (0-0.7) k/uL Basophils # 0.2 (0-0.2) k/uL Sodium 142 (137-145) mmol/L Potassium 4.2 (3.5-5.1) mmol/L Chloride 106 (98-107) mmol/L Carbon Dioxide 25 (22-30) mmol/L Anion Gap 11 mmol/L BUN 17 (7-17) mg/dL Creatinine 0.70 (0.52-1.04) mg/dL Est GFR (CKD-EPI)AfAm >90 (>60 ml/min/1.73 sqM) Est GFR (CKD-EPI)NonAf >90 (>60 ml/min/1.73 sqM) Glucose 96 (74-99) mg/dL Calcium 9.8 (8.4-10.2) mg/dL Urine Color Urine Appearance (Clear) Urine pH (5.0-8.0) Ur Specific [place] (1.001-1.035) Urine Protein (Negative) Urine Glucose (UA) (Negative) Urine Ketones (Negative) Urine Blood (Negative) Urine Nitrite (Negative) Urine Bilirubin (Negative) Urine Urobilinogen (<2.0) mg/dL Ur Leukocyte Esterase (Negative) Urine RBC (0-5) /hpf Urine WBC (0-5) /hpf Ur Squamous Epith Cells (0-4) /hpf Urine Mucus (None) /hpf Urine HCG, Qual (Not Detectd) Influenza Type A RNA Not Detected (Not Detectd) Influenza Type B (PCR) Not Detected (Not Detectd) 07/16/19 07/16/19 Range/Units 13:56 13:56 WBC (3.8-10.6) k/uL RBC (3.80-5.40) m/uL Hgb (11.4-16.0) gm/dL Hct (34.0-46.0) % MCV (80.0-100.0) fL MCH (25.0-35.0) pg MCHC (31.0-37.0) g/dL RDW (11.5-15.5) % Plt Count (150-450) k/uL Neutrophils % % Lymphocytes % % Monocytes % % Eosinophils % % Basophils % % Neutrophils # (1.3-7.7) k/uL Lymphocytes # (1.0-4.8) k/uL Monocytes # (0-1.0) k/uL Eosinophils # (0-0.7) k/uL Basophils # (0-0.2) k/uL Sodium (137-145) mmol/L Potassium (3.5-5.1) mmol/L Chloride (98-107) mmol/L Carbon Dioxide (22-30) mmol/L Anion Gap mmol/L BUN (7-17) mg/dL Creatinine (0.52-1.04) mg/dL Est GFR (CKD-EPI)AfAm (>60 ml/min/1.73 sqM) Est GFR (CKD-EPI)NonAf (>60 ml/min/1.73 sqM) Glucose (74-99) mg/dL Calcium (8.4-10.2) mg/dL Urine Color Yellow Urine Appearance Cloudy H (Clear) Urine pH 6.0 (5.0-8.0) Ur Specific [place] 1.024 (1.001-1.035) Urine Protein Negative (Negative) Urine Glucose (UA) Negative (Negative) Urine Ketones Negative (Negative) Urine Blood Negative (Negative) Urine Nitrite Negative (Negative) Urine Bilirubin Negative (Negative) Urine Urobilinogen 3.0 (<2.0) mg/dL Ur Leukocyte Esterase Moderate H (Negative) Urine RBC 3 (0-5) /hpf Urine WBC 17 H (0-5) /hpf Ur Squamous Epith Cells 7 H (0-4) /hpf Urine Mucus Rare H (None) /hpf Urine HCG, Qual Not Detected (Not Detectd) Influenza Type A RNA (Not Detectd) Influenza Type B (PCR) (Not Detectd) - Radiology Data Radiology results: report reviewed Normal CXR. Disposition Clinical Impression: UTI (urinary tract infection), Body aches Disposition: HOME SELF-CARE Condition: Good Instructions (If sedation given, give patient instructions): Urinary Tract Infection in Women (ED) Additional Instructions: Please use medication as discussed. Please follow up with family doctor if symptoms have not improved over the next two days. Please return to the emergency room if your symptoms increase or worsen or for any other concerns. Prescriptions: Cephalexin [Keflex] 500 mg PO Q6HR 3 Days #12 cap Is patient prescribed a controlled substance at d/c from ED?: No Referrals: Travis Bell MD [Primary Care Provider] - 1-2 days Time of Disposition: 15:50
[2019-07-16 14:26] LABS: Basophils # (A) 0.2 k/uL (0-0.2); Basophils % (A) 3 %; Eosinophils # (A) 0.1 k/uL (0-0.7); Eosinophils % (A) 1 %; HCT 41.7 % (34.0-46.0); HGB 13.9 gm/dL (11.4-16.0); Lymphocytes # (A) 1.4 k/uL (1.0-4.8); Lymphocytes % (A) 22 %; MCH 28.8 pg (25.0-35.0); MCHC 33.3 g/dL (31.0-37.0); MCV 86.5 fL (80.0-100.0); Mean Platelet Volume 6.8; Monocytes # (A) 0.3 k/uL (0-1.0); Monocytes % (A) 5 %; Neutrophils # (A) 4.4 k/uL (1.3-7.7); Neutrophils % (A) 67 %; Platelet Count 221 k/uL (150-450); RBC 4.82 m/uL (3.80-5.40); WBC 6.6 k/uL (3.8-10.6)
[2019-07-16 14:35] LABS: African American GFR (CKD) >90 (>60 ml/min/1.73 sqM); Anion Gap 11 mmol/L; Appearance,Urine Cloudy (Clear); Bilirubin,Urine Negative (Negative); Blood Urea Nitrogen 17 mg/dL (7-17); Blood,Urine Negative (Negative); Calcium 9.8 mg/dL (8.4-10.2); Carbon Dioxide 25 mmol/L (22-30); Chloride 106 mmol/L (98-107); Color,Urine Yellow; Glucose 96 mg/dL (74-99); Glucose,Urine (UA) Negative (Negative); Ketones,Urine Negative (Negative); Leukocyte Esterase,Urine Moderate (Negative); Mucus,Urine Rare /hpf; Nitrite,Urine Negative (Negative); Non-African American GFR(CKD) >90 (>60 ml/min/1.73 sqM); Potassium 4.2 mmol/L (3.5-5.1); Protein,Urine Negative (Negative); RBC,Urine 3 /hpf (0-5); Sodium 142 mmol/L (137-145); Specific Gravity,Urine 1.024 (1.001-1.035); Squamous Epithelial Cell,Urine 7 /hpf (0-4); WBC,Urine 17 /hpf (0-5)
--- NOTE | 2019-07-16 15:20 | XR ---
EXAMINATION TYPE: XR chest 2V DATE OF EXAM: 07/16/2019 COMPARISON: 08/31/2016 HISTORY: 38-year-old female with cough TECHNIQUE: PA and lateral views FINDINGS: The cardiomediastinal silhouette, aorta, and pulmonary vasculature are within normal limits. Lungs an d pleural spaces are clear. IMPRESSION: No acute cardiopulmonary process.
[2019-07-16] MEDS ORDERED: CEPHALEXIN 500MG STARTER PACK 4 CAP BTL PO STA (15:51)
[2019-07-16 16:17] VITALS: BP 116/78; PULSE 84; RESP 18; TEMP 98.2
== END 2019-07-16 16:16 | disposition home or self-care (01) ==
LOC: EC 12:56
DX: N39.0 Urinary tract infection, site not specified (principal); R52 Pain, unspecified; Z88.5 Allergy status to narcotic agent; Z87.891 Personal history of nicotine dependence
CPT/HCPCS: 36415; 80048; 85025; 81001; 81025; 87502; 71046; 99284; 96374; 96361; J1885

== ENCOUNTER 2020-01-18 22:00 | Emergency (ER) | payer OTHER ==
[2020-01-18 22:40] LABS: Appearance,Urine Clear (Clear); Bilirubin,Urine Negative (Negative); Blood,Urine Small (Negative); Color,Urine Light Yellow; Glucose,Urine (UA) Negative (Negative); Ketones,Urine Negative (Negative); Leukocyte Esterase,Urine Trace (Negative); Mucus,Urine Rare /hpf; Nitrite,Urine Negative (Negative); PH, Urine 5.5 (5.0-8.0); Protein,Urine Negative (Negative); RBC,Urine 10 /hpf (0-5); Specific Gravity,Urine 1.017 (1.001-1.035); Squamous Epithelial Cell,Urine 2 /hpf (0-4); Urobilinogen,Urine <2.0 mg/dL (<2.0); WBC,Urine 7 /hpf (0-5)
[2020-01-18 23:10] LABS: Basophils % (A) 0 %; Eosinophils # (A) 0.4 k/uL (0-0.7); Eosinophils % (A) 5 %; HCT 36.7 % (34.0-46.0); Lymphocytes # (A) 1.8 k/uL (1.0-4.8); Lymphocytes % (A) 21 %; MCH 28.9 pg (25.0-35.0); MCHC 32.8 g/dL (31.0-37.0); MCV 88.3 fL (80.0-100.0); Monocytes # (A) 0.4 k/uL (0-1.0); Monocytes % (A) 5 %; Neutrophils # (A) 5.7 k/uL (1.3-7.7); Neutrophils % (A) 67 %; Platelet Count 255 k/uL (150-450); RBC 4.15 m/uL (3.80-5.40); RDW 13.2 % (11.5-15.5); WBC 8.5 k/uL (3.8-10.6)
[2020-01-18 23:29] LABS: ALT 24 U/L (4-34); African American GFR (CKD) >90 (>60 ml/min/1.73 sqM); Anion Gap 6 mmol/L; Blood Urea Nitrogen 13 mg/dL (7-17); Carbon Dioxide 21 mmol/L (22-30); Chloride 105 mmol/L (98-107); Glucose 88 mg/dL (74-99); Non-African American GFR(CKD) >90 (>60 ml/min/1.73 sqM); Sodium 132 mmol/L (137-145)
--- NOTE | 2020-01-18 23:31 | ED ---
Abdominal Pain HPI - General Source: patient Mode of arrival: ambulatory Limitations: no limitations <Christiane Martínez - Last Filed: 01/19/20 00:25> <Janessa Landon - Last Filed: 01/22/20 17:01> - General Chief Complaint: Abdominal Pain Stated Complaint: 16wks, lower abd pain Time Seen by Provider: 01/18/20 23:05 - History of Present Illness Initial Comments: Patient is a 39-year-old female presenting to the emergency Department with complaints of lower abdominal pain 3 days. She is currently 16 weeks , . Her PENSION ADVISER is Dr. Krishnan. She states the pain started in her lower abdomen, above her bladder, more on the right side for the past 3 days. She states the pain is fairly consistent, no alleviating factors. She denies any vaginal bleeding, urinary complaints. She states her has been uncomplicated thus far. She denies any fever, chills, nausea, vomiting. She denies history of abdominal surgeries. She denies any chest pain or shortness of breath. She has no further complaints. Upon arrival to the ER, her vitals are stable. (Christiane Martínez) - Related Data Home Medications Medication Instructions Recorded Confirmed Butalb/APAP/Caff 50-325-40Mg 1 tab PO TID PRN 09/10/17 11/06/17 [Fioricet 50-325-40] HYDROcodone/APAP 10-325MG [[place] 1 tab PO TID PRN 09/10/17 11/06/17 10-325] Naproxen 500 mg PO BID PRN 09/10/17 11/06/17 Previous Rx's Medication Instructions Recorded Cyclobenzaprine [Flexeril] 10 mg PO TID #20 tab 08/20/18 Cephalexin [Keflex] 500 mg PO Q6HR 3 Days #12 cap 07/16/19 Allergies Allergy/AdvReac Type Severity Reaction Status Date / Time morphine Allergy Itching Verified 01/18/20 22:10 codeine AdvReac Severe Makes Verified 01/18/20 22:10 patient blackout Review of Systems ROS Other: All systems not noted in ROS Statement are negative. <Christiane Martínez - Last Filed: 01/19/20 00:25> ROS Other: All systems not noted in ROS Statement are negative. <Janessa Landon - Last Filed: 01/22/20 17:01> ROS Statement: Those systems with pertinent positive or pertinent negative responses have been documented in the HPI. Past Medical History Past Medical History: No Reported History Additional Past Medical History / Comment(s): chronic back pain, gestational diabetes, History of Any Multi-Drug Resistant Organisms: None Reported Past Surgical History: Back Surgery Additional Past Surgical History / Comment(s): 2x back laminectomy, 1 fusion, Past Anesthesia/Blood Transfusion Reactions: No Reported Reaction Past Psychological History: No Psychological Hx Reported Smoking Status: Former smoker Past Alcohol Use History: None Reported Past Drug Use History: None Reported <Christiane Martínez - Last Filed: 01/19/20 00:25> General Exam Limitations: no limitations <Christiane Martínez - Last Filed: 01/19/20 00:25> - General Exam Comments Initial Comments: GENERAL: Well-appearing, well-nourished and in no acute distress. HEAD: Atraumatic, normocephalic. EYES: Pupils equal round and reactive to light, extraocular movements intact, sclera anicteric, conjunctiva are normal. ENT: TMs normal, nares patent, oropharynx clear without exudates. Moist mucous membranes. NECK: Normal range of motion, supple without lymphadenopathy or JVD. LUNGS: Breath sounds clear to auscultation bilaterally and equal. No wheezes rales or rhonchi. HEART: Regular rate and rhythm without murmurs, rubs or gallops. ABDOMEN: Mild tenderness to palpation suprapubic area as well as right lower quadrant. Soft, normoactive bowel sounds. No guarding, no rebound. No masses appreciated. : Deferred EXTREMITIES: Normal range of motion, no pitting or edema. No clubbing or cyanosis. NEUROLOGICAL: Normal speech, normal gait. PSYCH: Normal mood, normal affect. SKIN: Warm, Dry, normal turgor, no rashes or lesions noted. (Christiane Martínez) Course Vital Signs 01/18/20 01/19/20 22:07 00:38 Temperature 98.7 F 97.4 F L Pulse Rate 79 68 Respiratory 18 16 Rate Blood Pressure 113/66 140/73 O2 Sat by Pulse 99 100 Oximetry Medical Decision Making - Lab Data Result diagrams: 01/18/20 22:53 01/18/20 22:53 <Christiane Martínez - Last Filed: 01/19/20 00:25> - Lab Data Result diagrams: 01/18/20 22:53 01/18/20 22:53 <Janessa Landon - Last Filed: 01/22/20 17:01> - Medical Decision Making Patient is a 39-year-old female presenting for lower abdominal pain 3 days. She is 16 weeks , , Dr. Krishnan patient. Vitals are stable. Patient only has some mild pain with palpation of the suprapubic area. Her ultrasound does no acute abnormalities, heart rate is normal. Lab work shows no acute abnormalities, urine shows no signs of infection. I discussed with patient this is most likely ligament or round ligament pain. She is stable for discharge. We did discuss strong return parameters such as fever, nausea and vomiting, significant increase in abdominal pain. She is in agreement with this plan of care. She is stable for discharge. She will follow up with her PENSION ADVISER. Case discussed with Dr. Landon. (Christiane Martínez) I was available for consultation in the emergency department. The history and physical exam were done by the midlevel provider. I was consulted for this patients care. I reviewed the case with the midlevel provider and based on their presentation of the patient, I agree with the assessment, medical decision making and plan of care as documented. Chart was dictated using [employer] dictation software. Attempts were made to correct any dictation errors however some typographical errors may persist. Patient was seen during a national state of emergency due to the Covid-19 pandemic. (Janessa Landon) - Lab Data Lab Results 01/18/20 01/18/20 01/18/20 Range/Units 22:29 22:50 22:53 WBC 8.5 (3.8-10.6) k/uL RBC 4.15 (3.80-5.40) m/uL Hgb 12.0 (11.4-16.0) gm/dL Hct 36.7 (34.0-46.0) % MCV 88.3 (80.0-100.0) fL MCH 28.9 (25.0-35.0) pg MCHC 32.8 (31.0-37.0) g/dL RDW 13.2 (11.5-15.5) % Plt Count 255 (150-450) k/uL Neutrophils % 67 % Lymphocytes % 21 % Monocytes % 5 % Eosinophils % 5 % Basophils % 0 % Neutrophils # 5.7 (1.3-7.7) k/uL Lymphocytes # 1.8 (1.0-4.8) k/uL Monocytes # 0.4 (0-1.0) k/uL Eosinophils # 0.4 (0-0.7) k/uL Basophils # 0.0 (0-0.2) k/uL Sodium (137-145) mmol/L Potassium (3.5-5.1) mmol/L Chloride (98-107) mmol/L Carbon Dioxide (22-30) mmol/L Anion Gap mmol/L BUN (7-17) mg/dL Creatinine (0.52-1.04) mg/dL Est GFR (CKD-EPI)AfAm (>60 ml/min/1.73 sqM) Est GFR (CKD-EPI)NonAf (>60 ml/min/1.73 sqM) Glucose (74-99) mg/dL Plasma Lactic Acid Anthony (0.7-2.0) mmol/L Calcium (8.4-10.2) mg/dL Total Bilirubin (0.2-1.3) mg/dL AST (14-36) U/L ALT (4-34) U/L Alkaline Phosphatase (38-126) U/L Total Protein (6.3-8.2) g/dL Albumin (3.5-5.0) g/dL Lipase (23-300) U/L Urine Color Light Yellow Urine Appearance Clear (Clear) Urine pH 5.5 (5.0-8.0) Ur Specific Gillespie 1.017 (1.001-1.035) Urine Protein Negative (Negative) Urine Glucose (UA) Negative (Negative) Urine Ketones Negative (Negative) Urine Blood Small H (Negative) Urine Nitrite Negative (Negative) Urine Bilirubin Negative (Negative) Urine Urobilinogen <2.0 (<2.0) mg/dL Ur Leukocyte Esterase Trace H (Negative) Urine RBC 10 H (0-5) /hpf Urine WBC 7 H (0-5) /hpf Ur Squamous Epith Cells 2 (0-4) /hpf Urine Mucus Rare H (None) /hpf Blood Type B Positive Blood Type Recheck B Pos Bld Type Recheck Status No 01/18/20 01/18/20 Range/Units 22:53 22:53 WBC (3.8-10.6) k/uL RBC (3.80-5.40) m/uL Hgb (11.4-16.0) gm/dL Hct (34.0-46.0) % MCV (80.0-100.0) fL MCH (25.0-35.0) pg MCHC (31.0-37.0) g/dL RDW (11.5-15.5) % Plt Count (150-450) k/uL Neutrophils % % Lymphocytes % % Monocytes % % Eosinophils % % Basophils % % Neutrophils # (1.3-7.7) k/uL Lymphocytes # (1.0-4.8) k/uL Monocytes # (0-1.0) k/uL Eosinophils # (0-0.7) k/uL Basophils # (0-0.2) k/uL Sodium 132 L (137-145) mmol/L Potassium 5.0 (3.5-5.1) mmol/L Chloride 105 (98-107) mmol/L Carbon Dioxide 21 L (22-30) mmol/L Anion Gap 6 mmol/L BUN 13 (7-17) mg/dL Creatinine 0.56 (0.52-1.04) mg/dL Est GFR (CKD-EPI)AfAm >90 (>60 ml/min/1.73 sqM) Est GFR (CKD-EPI)NonAf >90 (>60 ml/min/1.73 sqM) Glucose 88 (74-99) mg/dL Plasma Lactic Acid Anthony 1.0 (0.7-2.0) mmol/L Calcium 10.0 (8.4-10.2) mg/dL Total Bilirubin 0.6 (0.2-1.3) mg/dL AST 46 H (14-36) U/L ALT 24 (4-34) U/L Alkaline Phosphatase 42 (38-126) U/L Total Protein 7.2 (6.3-8.2) g/dL Albumin 4.1 (3.5-5.0) g/dL Lipase 115 (23-300) U/L Urine Color Urine Appearance (Clear) Urine pH (5.0-8.0) Ur Specific Gillespie (1.001-1.035) Urine Protein (Negative) Urine Glucose (UA) (Negative) Urine Ketones (Negative) Urine Blood (Negative) Urine Nitrite (Negative) Urine Bilirubin (Negative) Urine Urobilinogen (<2.0) mg/dL Ur Leukocyte Esterase (Negative) Urine RBC (0-5) /hpf Urine WBC (0-5) /hpf Ur Squamous Epith Cells (0-4) /hpf Urine Mucus (None) /hpf Blood Type Blood Type Recheck Bld Type Recheck Status Disposition Is patient prescribed a controlled substance at d/c from ED?: No <Christiane Martínez - Last Filed: 01/19/20 00:25> <Janessa Landon - Last Filed: 01/22/20 17:01> Clinical Impression: Abdominal pain Disposition: HOME SELF-CARE Condition: Stable Instructions (If sedation given, give patient instructions): Abdominal Pain in (ED) Additional Instructions: Please return to the Emergency Department if symptoms worsen or any other concerns. Follow-up with PENSION ADVISER. Referrals: Travis Bell MD [Primary Care Provider] - 1-2 days
--- NOTE | 2020-01-18 23:35 | US ---
EXAMINATION TYPE: US OB >= 14 wk fetus DATE OF EXAM: 01/18/2020 COMPARISON: None CLINICAL HISTORY: pain Pt states pain x 3 days, denies bleeding TECHNIQUE: Transabdominal (TA) GESTATIONAL AGE / DATING Physician Established: (15 weeks/6 days) EDC: 07/05/2020 Dates by LMP: Unknown Dates by First Scan: No prior Dates by Current Scan: (16 weeks/2 days) EDC: 07/02/2020 SURVEY IUP: Single PLACENTA: Anterior PREVIA: No Previa DIVYA: 12.9 cm Normal CERVICAL LENGTH (transabdominal: norm > 3.0cm): 3.3 cm BIOMETRY PRESENTATION: Breech BPD: 3.3 cm 16 weeks / 3 days HC: 12.8 cm 16 weeks / 3 days AC: 10.6 cm 16 weeks / 4 days FL: 1.9 cm 15 weeks / 5 days ESTIMATED WEIGHT IN GRAMS: 147.9 grams ESTIMATED WEIGHT IN LBS/OZ: 0 lbs. 5 oz. WEIGHT PERCENTAGE BASED ON ESTABLISHED DATES: 63.9% HC/AC: 1.20 Normal FL/AC: 18 Normal HEART RATE: 146 bpm RHYTHM: Normal Single, viable IUP IMPRESSION: Single living intrauterine fetus. No complicating process seen. Amniotic fluid is adequate.
[2020-01-18 23:54] LABS: AST 46 U/L (14-36); Albumin 4.1 g/dL (3.5-5.0); Alkaline Phosphatase 42 U/L (38-126); Total Bilirubin 0.6 mg/dL (0.2-1.3); Total Protein 7.2 g/dL (6.3-8.2)
[2020-01-19 00:40] VITALS: BP 140/73; PULSE 68; RESP 16; TEMP 97.4
== END 2020-01-19 00:40 | disposition home or self-care (01) ==
LOC: EC 22:00
DX: O99.89 Other specified diseases and conditions complicating pregnancy, childbirth and the puerperium (principal); R10.30 Lower abdominal pain, unspecified; Z3A.16 16 weeks gestation of pregnancy; Z87.891 Personal history of nicotine dependence; Z88.5 Allergy status to narcotic agent; Z86.32 Personal history of gestational diabetes
CPT/HCPCS: 36415; 76805; 80053; 81001; 83605; 83690; 85025; 86900; 86901; 99284

== ENCOUNTER 2020-05-24 20:50 | Outpatient (CLI) | payer OTHER ==
[2020-05-24 23:13] VITALS: BP 132/73; PULSE 77; RESP 16; TEMP 97
--- NOTE | 2020-06-08 08:17 | P.MSEPDOC ---
Presenting Problems - Arrival Data Date of Arrival on Unit: 05/25/20 Time of Arrival on Unit: 20:50 Mode of Transport: Ambulatory - Complaint OB-Reason for Admission/Chief Complaint: Other Comment: Cramping and spotting Medical History - Information : 3 Para: 2 Term: 2 : 0 Abortions: Spontaneous or Elective: 0 Number of Living Children: 2 - Gestational Age Gestational Age by NEELA (wks/days): 34 Weeks and 1 Days Review of Systems - Review of Systems Constitutional: No problems Breast: No problems ENT: No problems Cardiovascular: No problems Respiratory: No problems Gastrointestinal: No problems Genitourinary: No problems Musculoskeletal: No problems Neurological: No problems Skin: No problems Vital Signs - Temperature Temperature: 97.0 F Temperature Source: Temporal Artery Scan - Pulse Right Pulse Rate: 77 Pulse Assessment Method: Pulse Oximetry - Respirations Respiratory Rate: 16 Oxygen Delivery Method: Room Air O2 Sat by Pulse Oximetry: 99 - Blood Pressure Right Arm Blood Pressure: 132/73 Blood Pressure Mean: 92 Blood Pressure Source: Automatic Cuff Medical Screen Scoring (Pre) - Cervical Exam Dilation: 1-3 cm = 1 Membranes: Intact - Uterine Contractions Frequency: N/A Duration: > 40 seconds = 2 Intensity: N/A - Maternal Vital Signs Maternal Temperature: N/A Maternal Blood Pressure: N/A Signs of Preeclampsia: N/A Maternal Respirations: N/A - Maternal Trauma Maternal Trauma: N/A - Assessment - Baby A Baseline FHR: 140 Heart Rate - NICHD Category: Category I (Normal) = 0 NST: Reactive Position: N/A Station: N/A - Total Score - Baby A Total Score - Baby A: 3 - Total Score - Baby B Total Score - Baby B: 3 - Total Score - Baby C Total Score - Baby C: 3 - Level of Risk - Baby A Level of Risk - Baby A: Low (0-5) - Level of Risk - Baby B Level of Risk - Baby B: Low (0-5) - Level of Risk - Baby C Level of Risk - Baby C: Low (0-5) - Pain Assessment Pain Location and Character: Abdomen Pain Scale Used: Numeric (1 - 10) Pain Intensity: 2 Pain Management Goal: 3 Pain Description: *Acute Non-Pharmacological Interventions: Darkened Room, Distraction, Inactivity Physician Notification (Pre) - Physician Notified Physician Notified Date: 05/24/20 Physician Notified Time: 21:25 New Order Received: Yes - Notification Comment Comment: Perform cervical exam and re-check in 1 hour Medical Screen Scoring (Post) - Cervical Exam Dilation: 1-3 cm = 1 Membranes: Intact - Uterine Contractions Frequency: > 5 minutes apart = 1 Duration: > 40 seconds = 2 Intensity: N/A - Maternal Vital Signs Maternal Temperature: N/A Maternal Blood Pressure: N/A Signs of Preeclampsia: N/A Maternal Respirations: N/A - Pain Assessment Pain Location and Character: Abdomen Pain Scale Used: Numeric (1 - 10) Pain Intensity: 2 Pain Management Goal: 3 Pain Description: *Acute Pain Frequency: Intermittent Non-Pharmacological Interventions: Darkened Room, Distraction, Inactivity - Maternal Trauma Maternal Trauma: N/A - Assessment - Baby A Heart Rate: 140 Heart Rate - NICHD Category: Category I (Normal) = 0 NST: Reactive Position: N/A Station: N/A - Total Score Total Score - Baby A: 4 Total Score - Baby B: 4 Total Score - Baby C: 4 - Post Treatment Level of Risk Post Treatment Level of Risk - Baby A: Low (0-5) Post Treatment Level of Risk - Baby B: Low (0-5) Post Treatment Level of Risk - Baby C: Low (0-5) Physician Notification (Post) - Physician Notified Physician Notified Date: 05/24/20 Physician Notified Time: 21:25 Physician/Practitioner Notified:: Steve Spoke With: Steve New Order Received: Yes - Notification Comment Comment: Perform cervical exam and recheck in an hour Disposition - Disposition OB Disposition: Observe Discharge Date: 05/24/20 Discharge Time: 22:50 I agree with the RN Medical Screening Exam: Yes Risk & Benefit of care provided described in d/c instruction: Yes Diagnosis: ANTEPARTUM HEMORRHAGE, UNSPECIFIED, THIRD TRIMESTER
== END 2020-05-24 22:50 | disposition home or self-care (01) ==
LOC: FBPOP 20:50
PROVIDERS: ATTEND Obstetrics & Gynecology
DX: O46.93 Antepartum hemorrhage, unspecified, third trimester (principal); Z3A.34 34 weeks gestation of pregnancy
CPT/HCPCS: 59025; G0463; 99213

== ENCOUNTER 2020-05-29 06:54 | Outpatient (CLI) | payer OTHER ==
[2020-05-29 08:31] VITALS: BP 126/69; PULSE 82; RESP 16; TEMP 96.6
--- NOTE | 2020-05-29 14:52 | P.MSEPDOC ---
Presenting Problems - Arrival Data Date of Arrival on Unit: 05/29/20 Time of Arrival on Unit: 06:54 Mode of Transport: Ambulatory - Complaint OB-Reason for Admission/Chief Complaint: Possible Onset of Labor Comment: contractions all night and pelvic pressure Medical History - Information : 3 Para: 2 Term: 2 : 0 Abortions: Spontaneous or Elective: 0 Number of Living Children: 2 - Gestational Age Gestational Age by NEELA (wks/days): 34 Weeks and 5 Days Review of Systems - Review of Systems Constitutional: No problems Breast: No problems ENT: No problems Cardiovascular: No problems Respiratory: No problems Gastrointestinal: No problems Genitourinary: No problems Musculoskeletal: No problems Neurological: No problems Skin: No problems Vital Signs - Temperature Temperature: 96.6 F Temperature Source: Temporal Artery Scan - Pulse Right Brachial Pulse Rate: 82 Pulse Assessment Method: Automatic Cuff - Respirations Respiratory Rate: 16 Oxygen Delivery Method: Room Air O2 Sat by Pulse Oximetry: 100 - Blood Pressure Right Arm Blood Pressure: 126/69 Blood Pressure Mean: 88 Blood Pressure Source: Automatic Cuff Medical Screen Scoring (Pre) - Cervical Exam Dilation: 1-3 cm = 1 Membranes: Intact - Uterine Contractions Frequency: > 5 minutes apart = 1 Duration: > 40 seconds = 2 - Maternal Vital Signs Maternal Temperature: N/A Maternal Blood Pressure: N/A Signs of Preeclampsia: N/A Maternal Respirations: N/A - Maternal Trauma Maternal Trauma: N/A - Assessment - Baby A Baseline FHR: 125 Heart Rate - NICHD Category: Category I (Normal) = 0 NST: Reactive Position: N/A Station: N/A - Total Score - Baby A Total Score - Baby A: 4 - Total Score - Baby B Total Score - Baby B: 4 - Total Score - Baby C Total Score - Baby C: 4 - Level of Risk - Baby A Level of Risk - Baby A: Low (0-5) - Level of Risk - Baby B Level of Risk - Baby B: Low (0-5) - Level of Risk - Baby C Level of Risk - Baby C: Low (0-5) Physician Notification (Pre) - Physician Notified Physician Notified Date: 05/29/20 Physician Notified Time: 07:13 New Order Received: Yes (dc if no cervical change in one hour and fhts category !) Disposition - Disposition OB Disposition: Triage, Discharge to home, Written follow up instructions reviewed Discharge Date: 05/29/20 Discharge Time: 08:15 I agree with the RN Medical Screening Exam: Yes Risk & Benefit of care provided described in d/c instruction: Yes Diagnosis: FALSE LABOR BEFORE 37 COMPLETED WEEKS OF GEST, THIRD TRI (Patient presents to labor and delivery with complaints of pelvic pressure. She was here approximately 5 days ago with similar complaints and was found to be 1-2 cm dilated and not in labor. Repeat exam shows her to be 1 cm dilated still an isolated contractions. heart tones are category 1. At this time there is no evidence of labor and therefore she sent home to return if she has other concerns are increased symptomatology.)
== END 2020-05-29 08:15 | disposition home or self-care (01) ==
LOC: FBPOP 06:54
PROVIDERS: ATTEND Obstetrics & Gynecology
DX: O47.03 False labor before 37 completed weeks of gestation, third trimester (principal); Z3A.34 34 weeks gestation of pregnancy
CPT/HCPCS: 59025; G0463; 99213

== ENCOUNTER 2020-06-07 20:48 | Outpatient (CLI) | payer OTHER ==
[2020-06-07 21:40] VITALS: BP 124/76; PULSE 103; RESP 16; TEMP 97.4
--- NOTE | 2020-06-14 09:37 | P.MSEPDOC ---
Presenting Problems - Arrival Data Date of Arrival on Unit: 06/07/20 Time of Arrival on Unit: 20:48 Mode of Transport: Wheelchair - Complaint OB-Reason for Admission/Chief Complaint: Rule Out SROM Comment: Patient states she is unsure if her water has broken, but every time she stands up she feels like she is leaking. States she has been contractions, but they are irregular throughout the day, nothing timable, denies vaginal bleeding or intercourse in the last 24 hours. Medical History - Information : 3 Para: 2 Term: 2 : 0 Abortions: Spontaneous or Elective: 0 Number of Living Children: 2 - Gestational Age Gestational Age by NEELA (wks/days): 36 Weeks and 0 Days - History Comment: Patient is high risk due to AMA, states also because she has had 3 back surgeries and was GDM with her previous 2 pregnancies, but not with this one. Review of Systems - Review of Systems Constitutional: No problems Breast: No problems ENT: No problems Cardiovascular: No problems Respiratory: No problems Gastrointestinal: No problems Genitourinary: No problems Musculoskeletal: No problems Neurological: No problems Skin: No problems Vital Signs - Temperature Temperature: 97.4 F Temperature Source: Temporal Artery Scan - Pulse Pulse Oximetery Pulse Rate: 103 Pulse Assessment Method: Pulse Oximetry - Respirations Respiratory Rate: 16 Oxygen Delivery Method: Room Air - Blood Pressure Sitting Blood Pressure: 124/76 Blood Pressure Mean: 92 Blood Pressure Source: Automatic Cuff Medical Screen Scoring (Pre) - Cervical Exam Dilation: 1-3 cm = 1 Effacement: Exam Deferred Membranes: Intact - Uterine Contractions Frequency: > 5 minutes apart = 1 Duration: > 40 seconds = 2 Intensity: N/A - Maternal Vital Signs Maternal Temperature: N/A Maternal Blood Pressure: N/A Signs of Preeclampsia: N/A Maternal Respirations: N/A - Maternal Trauma Maternal Trauma: N/A - Assessment - Baby A Baseline FHR: 150 Heart Rate - NICHD Category: Category I (Normal) = 0 NST: Reactive Position: N/A - Total Score - Baby A Total Score - Baby A: 4 - Total Score - Baby B Total Score - Baby B: 4 - Total Score - Baby C Total Score - Baby C: 4 - Level of Risk - Baby A Level of Risk - Baby A: Low (0-5) - Level of Risk - Baby B Level of Risk - Baby B: Low (0-5) - Level of Risk - Baby C Level of Risk - Baby C: Low (0-5) Physician Notification (Pre) - Physician Notified Physician Notified Date: 06/07/20 Physician Notified Time: 21:12 New Order Received: Yes - Notification Comment Comment: Orders given to discharge patient home with instructions if amnisure is negative. If positive call physician with report. Patient to keep regularly scheduled appt for tomorrow with Dr. Krishnan. Disposition - Disposition OB Disposition: Discharge to home, Written follow up instructions reviewed Discharge Date: 06/07/20 Discharge Time: 21:30 I agree with the RN Medical Screening Exam: Yes Risk & Benefit of care provided described in d/c instruction: Yes Diagnosis: FALSE LABOR BEFORE 37 COMPLETED WEEKS OF GEST, THIRD TRI
== END 2020-06-07 21:30 | disposition home or self-care (01) ==
LOC: FBPOP 20:48
PROVIDERS: ATTEND Obstetrics & Gynecology
DX: O47.03 False labor before 37 completed weeks of gestation, third trimester (principal); Z3A.36 36 weeks gestation of pregnancy
CPT/HCPCS: 59025; 84112; G0463; 99213

== ENCOUNTER 2020-06-12 01:09 | Outpatient (CLI) | payer OTHER ==
[2020-06-12 02:41] VITALS: BP 139/65; PULSE 69; RESP 16; TEMP 97.8
--- NOTE | 2020-07-08 09:42 | P.MSEPDOC ---
Presenting Problems - Arrival Data Date of Arrival on Unit: 06/12/20 Time of Arrival on Unit: 01:09 Mode of Transport: Wheelchair - Complaint OB-Reason for Admission/Chief Complaint: Possible Onset of Labor Medical History - Information : 3 Para: 2 Term: 2 : 0 Abortions: Spontaneous or Elective: 0 Number of Living Children: 2 - Gestational Age Gestational Age by NEELA (wks/days): 36 Weeks and 5 Days Review of Systems - Review of Systems Constitutional: No problems Breast: No problems ENT: No problems Cardiovascular: No problems Respiratory: No problems Gastrointestinal: No problems Genitourinary: No problems Musculoskeletal: No problems Neurological: No problems Skin: No problems Vital Signs - Temperature Temperature: 97.8 F Temperature Source: Oral - Pulse Right Pulse Rate: 69 Pulse Assessment Method: Automatic Cuff - Respirations Respiratory Rate: 16 Oxygen Delivery Method: Room Air O2 Sat by Pulse Oximetry: 100 - Blood Pressure Right Arm Blood Pressure: 139/65 Blood Pressure Mean: 89 Blood Pressure Source: Automatic Cuff Medical Screen Scoring (Pre) - Cervical Exam Dilation: 1-3 cm = 1 Membranes: Intact - Uterine Contractions Frequency: > or = 36 weeks =2 Duration: > 40 seconds = 2 Intensity: N/A - Maternal Vital Signs Maternal Temperature: N/A Maternal Blood Pressure: N/A Signs of Preeclampsia: N/A Maternal Respirations: N/A - Maternal Trauma Maternal Trauma: N/A - Assessment - Baby A Baseline FHR: 125 Heart Rate - NICHD Category: Category I (Normal) = 0 NST: Reactive Position: N/A Station: N/A - Total Score - Baby A Total Score - Baby A: 5 - Total Score - Baby B Total Score - Baby B: 5 - Total Score - Baby C Total Score - Baby C: 5 - Level of Risk - Baby A Level of Risk - Baby A: Low (0-5) - Level of Risk - Baby B Level of Risk - Baby B: Low (0-5) - Level of Risk - Baby C Level of Risk - Baby C: Low (0-5) Physician Notification (Pre) - Physician Notified Physician Notified Date: 06/12/20 Physician Notified Time: 02:30 New Order Received: Yes Disposition - Disposition OB Disposition: Discharge to home Discharge Date: 06/12/20 Discharge Time: 02:30 I agree with the RN Medical Screening Exam: Yes Risk & Benefit of care provided described in d/c instruction: Yes Diagnosis: FALSE LABOR BEFORE 37 COMPLETED WEEKS OF GEST, THIRD TRI
== END 2020-06-12 02:30 | disposition home or self-care (01) ==
LOC: FBPOP 01:09
PROVIDERS: ATTEND Obstetrics & Gynecology
DX: O47.03 False labor before 37 completed weeks of gestation, third trimester (principal); Z3A.36 36 weeks gestation of pregnancy
CPT/HCPCS: 59025; G0463; 99213

== ENCOUNTER 2020-06-21 08:57 | Outpatient (CLI) | payer OTHER ==
[2020-06-21 13:22] VITALS: BP 128/75; PULSE 86; RESP 16; TEMP 97.2
--- NOTE | 2020-07-08 09:42 | P.MSEPDOC ---
Presenting Problems - Arrival Data Date of Arrival on Unit: 06/21/20 Time of Arrival on Unit: 08:55 Mode of Transport: Ambulatory - Complaint OB-Reason for Admission/Chief Complaint: Possible Onset of Labor Comment: contractions since last night 0 Medical History - Information : 3 Para: 2 Term: 2 : 0 Abortions: Spontaneous or Elective: 0 Number of Living Children: 2 - Gestational Age Gestational Age by NEELA (wks/days): 38 Weeks and 0 Days - History Complications: GBS+ Comment: Polyhydraminos Review of Systems - Review of Systems Constitutional: No problems Breast: No problems ENT: No problems Cardiovascular: No problems Respiratory: No problems Gastrointestinal: No problems Genitourinary: No problems Musculoskeletal: No problems Neurological: No problems Skin: No problems Vital Signs - Temperature Temperature: 97.2 F Temperature Source: Temporal Artery Scan - Pulse Right Brachial Pulse Rate: 86 Pulse Assessment Method: Automatic Cuff - Respirations Respiratory Rate: 16 Oxygen Delivery Method: Room Air O2 Sat by Pulse Oximetry: 97 - Blood Pressure Right Arm Sitting Blood Pressure: 128/75 Blood Pressure Mean: 92 Blood Pressure Source: Automatic Cuff Medical Screen Scoring (Pre) - Cervical Exam Dilation: 1-3 cm = 1 Membranes: Intact - Uterine Contractions Frequency: > 5 minutes apart = 1 Duration: > 40 seconds = 2 Intensity: N/A - Maternal Vital Signs Maternal Temperature: N/A Maternal Blood Pressure: N/A Signs of Preeclampsia: N/A Maternal Respirations: N/A - Maternal Trauma Maternal Trauma: N/A - Assessment - Baby A Baseline FHR: 135 Heart Rate - NICHD Category: Category I (Normal) = 0 NST: Reactive Position: N/A Station: N/A - Total Score - Baby A Total Score - Baby A: 4 - Total Score - Baby B Total Score - Baby B: 4 - Total Score - Baby C Total Score - Baby C: 4 - Level of Risk - Baby A Level of Risk - Baby A: Low (0-5) - Level of Risk - Baby B Level of Risk - Baby B: Low (0-5) - Level of Risk - Baby C Level of Risk - Baby C: Low (0-5) Physician Notification (Pre) - Physician Notified Physician Notified Date: 06/21/20 Physician Notified Time: 10:25 New Order Received: Yes - Notification Comment Comment: if no cervical change and reactive fhts then d/c Disposition - Disposition OB Disposition: Triage, Discharge to home Discharge Date: 06/21/20 Discharge Time: 11:40 I agree with the RN Medical Screening Exam: Yes Risk & Benefit of care provided described in d/c instruction: Yes Diagnosis: FALSE LABOR AT OR AFTER 37 COMPLETED WEEKS OF GESTATION
== END 2020-06-21 11:40 | disposition home or self-care (01) ==
LOC: FBPOP 08:57
PROVIDERS: ATTEND Obstetrics & Gynecology
DX: O47.1 False labor at or after 37 completed weeks of gestation (principal); Z3A.38 38 weeks gestation of pregnancy
CPT/HCPCS: 59025; G0463; 99213

== ENCOUNTER 2020-06-26 23:15 | Inpatient (IN) | payer OTHER ==
[2020-06-26] MEDS ORDERED: OXYTOCIN 10 UNIT/ML 1 ML VIAL IM PRN (23:32)
[2020-06-26] MEDS ORDERED: LIDOCAINE 0.5% (PF) 5 MG/ML (50 ML SDV) SQ PRN (23:32)
[2020-06-26] MEDS ORDERED: CARBOPROST TROMETHAMINE 250 MCG/ML 1 ML AMP IM PRN (23:32)
[2020-06-26] MEDS ORDERED: TERBUTALINE 1 MG/ML VIAL SQ PRN (23:32)
[2020-06-26] MEDS ORDERED: METHYLERGONOVINE 0.2 MG/ML 1 ML AMP IM PRN (23:32)
[2020-06-26] MEDS ORDERED: LACTATED RINGERS 1,000 ML IV SCH ×2 (23:45)
[2020-06-26] MEDS ORDERED: CITRIC ACID-SODIUM CITRATE 15 ML CUP PO ONE (23:58)
[2020-06-26] MEDS ORDERED: LACTATED RINGERS 1,000 ML IV ONE (23:58)
[2020-06-27] LABS: Basophils % (A) 0 %; Eosinophils # (A) 0.2 k/uL (0-0.7); Eosinophils % (A) 2 %; HCT 34.4 % (34.0-46.0); HGB 11.7 gm/dL (11.4-16.0); Lymphocytes % (A) 20 %; MCH 29.3 pg (25.0-35.0); MCHC 34.1 g/dL (31.0-37.0); Mean Platelet Volume 6.8; Monocytes # (A) 0.6 k/uL (0-1.0); Monocytes % (A) 6 %; Neutrophils % (A) 69 %; Platelet Count 291 k/uL (150-450); RDW 13.7 % (11.5-15.5); WBC 10.1 k/uL (3.8-10.6)
[2020-06-27] MEDS ORDERED: OXYTOCIN 10 UNIT/ML 1 ML VIAL ONE (00:29)
[2020-06-27] MEDS ORDERED: ONDANSETRON 4 MG/2 ML VIAL ONE (00:29)
[2020-06-27] MEDS ORDERED: KETOROLAC 15 MG/ML 1 ML VIAL ONE (00:29)
[2020-06-27] MEDS ORDERED: DEXAMETHASONE SOD PHOSPHATE 10 MG/ML 1 ML VIAL ONE (00:29)
[2020-06-27] MEDS ORDERED: diphenhydrAMINE 50 MG/ML 1 ML VIAL ONE (00:29)
[2020-06-27] MEDS ORDERED: HYDROmorphone PCA 10 MG/50 ML BAG IV PRN (01:25)
[2020-06-27] MEDS ORDERED: ACETAMINOPHEN TAB 325 MG TAB PO PRN (01:25)
[2020-06-27] MEDS ORDERED: ZOLPIDEM 5 MG TAB PO PRN (01:25)
[2020-06-27] MEDS ORDERED: diphenhydrAMINE 50 MG/ML 1 ML VIAL IVP PRN (01:25)
[2020-06-27] MEDS ORDERED: SIMETHICONE 80 MG CHEWABLE PO PRN (01:25)
[2020-06-27] MEDS ORDERED: diphenhydrAMINE 25 MG CAP PO PRN (01:25)
[2020-06-27] MEDS ORDERED: NALOXONE 0.4 MG/ML 1 ML VIAL IV PRN (01:25)
[2020-06-27] MEDS ORDERED: METOCLOPRAMIDE 5 MG/ML 2 ML VIAL IVP PRN (01:25)
[2020-06-27] MEDS ORDERED: LANOLIN CREAM 5 GM TUBE TOPICAL PRN (01:25)
[2020-06-27] MEDS ORDERED: ONDANSETRON 4 MG/2 ML VIAL IVP PRN (01:25)
[2020-06-27] MEDS ORDERED: OXYTOCIN 20 UNITS/1000 ML NS 1,000 ML IV SCH (01:30)
[2020-06-27 01:48] LABS: Glucose,Whole Blood 68 mg/dL (75-99)
--- NOTE | 2020-06-27 01:53 | P.HPOB ---
History of Present Illness H&P Date: 06/27/20 Chief Complaint: Leaking of amniotic fluid This patient is a pleasant 39-year-old 3 para 2 female estimated date of confinement 07/07/2020 estimated gestational age 38-4/7 weeks who presented to labor and delivery with complaints of leaking of fluid since about noon today. Patient has a positive group B strep culture. I did question the patient as to why she waited so long to come to the hospital, and she states that she was concerned because she been here before with similar complaints and was found not to be ruptured. Upon presentation today patient was found to have a positive Amniosure. Patients care is per Dr. Krishnan and is compli cated by advanced maternal age and macrosomia with polyhydramnios. Patient's 2 previous pregnancies were complicated by gestational diabetes, in this patient had an abnormal 1 hour GTT and one abnormal 3 hour gtt. but was not considered a gestational diabetic. The polyhydramnios is unknown etiology otherwise. Patient is seen maternal medicine for evaluation. Patient saw Dr. Kirshnan recently and they discussed route of delivery and due to the macrosomia she had scheduled a primary section and tubal ligation. Patient does understand a tubal ligation is permanent. Review of Systems Genitourinary: Reports Menstruation: Reports amenorrhea Past Medical History Past Medical History: No Reported History Additional Past Medical History / Comment(s): chronic back pain, gestational diabetes x 2 History of Any Multi-Drug Resistant Organisms: None Reported Past Surgical History: Back Surgery Additional Past Surgical History / Comment(s): 2x back laminectomy, 1 fusion, Past Anesthesia/Blood Transfusion Reactions: No Reported Reaction Past Psychological History: No Psychological Hx Reported Smoking Status: Never smoker Past Alcohol Use History: None Reported Past Drug Use History: None Reported - Past Family History Mother Family Medical History: No Reported History Medications and Allergies Home Medications Medication Instructions Recorded Confirmed Type Acetaminophen [Tylenol 8 Hour] 650 mg PO Q8H 05/24/20 06/21/20 History Pnv,Calcium 72/Iron/Folic Acid 1 tab PO DAILY 05/24/20 06/21/20 History [ Plus Tablet] Allergies Allergy/AdvReac Type Severity Reaction Status Date / Time codeine AdvReac Severe Makes Verified 06/26/20 23:24 patient blackout morphine AdvReac Itching Verified 06/26/20 23:24 Exam Vital Signs Temp Pulse Resp BP Pulse Ox 06/26/20 23:42 97.0 F L 90 16 129/83 06/26/20 23:23 97.0 F L 90 16 129/83 100 Intake and Output 06/26/20 06/26/20 06/27/20 14:59 22:59 06:59 Output Total 250 Balance -250 Output: Urine 250 Uretheral (Barriga) 250 Other: Weight 118.841 kg - OBG Physical Exam Abdomen: bowel sounds normal, no diffuse tenderness, no bruit present, no guarding noted, no hepatomegaly, no splenomegaly, no mass Vulva: both: normal Vagina: normal moisture, no discharge Uterus: enlarged Results blood work shows she is B positive, rubella immune, hepatitis B was negative, group B strep was positive, ultrasounds show macrosomia with polyhydramnios. Glucola was 174 with 1 abnormal 3 hour gtt. Result Diagrams: 06/26/20 23:48 Assessment and Plan Assessment: This is a pleasant 39-year-old 3 para 2 female 38-4/7 weeks gestation admitted to labor and delivery with premature rupture membranes approximately 12 hours earlier today. Patient does have a positive strep culture and a diagnosis of polyhydramnios of unknown etiology although certainly it is suspicious for gestational diabetes given the macrosomia and 2 previous pregnancies with gestational diabetes. Plan has already been put in place to do a primary section for delivery and patient is also requesting permanent sterilization, which she is discussed with Dr. Krishnan in the office previously. Plan is primary low transverse section and bilateral partial salpingectomy. I did rediscuss with the patient the fact that a tubal ligation is considered permanent, however there is a failure rate of approximately 3-4 per thousand procedures done. She understands that if she were to become in the future she has a 50% chance of a tubal or an ectopic . Patient also understands the risk of surgery including risks of infection, bleeding, possible injury to bowel, bladder, vessels, and/or other organs. Patient understands risk of DVT and pulmonary embolism. All the patient's questions are answered written consent is obtained. (1) 38 weeks gestation of Current Visit: Yes Status: Acute Code(s): Z3A.38 - 38 WEEKS GESTATION OF P REGRADHA SNOMED Code(s): 49345303 (2) Polyhydramnios affecting in third trimester Current Visit: Yes Status: Acute Code(s): O40.3XX0 - POLYHYDRAMNIOS, THIRD TRIMESTER, NOT APPLICABLE OR UNSP SNOMED Code(s): 330361036 (3) Group B streptococcal carriage complicating Current Visit: Yes Status: Acute Code(s): O99.820 - STREPTOCOCCUS B CARRIER STATE COMPLICATING SNOMED Code(s): 953138357643911 (4) Premature rupture of membranes Current Visit: Yes Status: Acute Code(s): O42.90 - TRISTAN ROM, 7TH0 BETW RUPT & ONST LABR, UNSP WEEKS OF GEST SNOMED Code(s): 98468668 (5) macrosomia Current Visit: Yes Status: Acute Code(s): O36.60X0 - MATERNAL CARE FOR EXCESS GROWTH, UNSP TRIMESTER, UNSP SNOMED Code(s): 88962022
--- NOTE | 2020-06-27 02:06 | P.OP ---
Date of Procedure: 06/27/20 Preoperative Diagnosis: #1: 38-4/7 weeks intrauterine . #2: Premature rupture membranes. #3: Positive group B strep culture. #4: macrosomia. 5: Polyhydramnios of unknown etiology Postoperative Diagnosis: Same, severe polyhydramnios Procedure(s) Performed: #1: Primary low transverse section. 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 Brief summary this is a pleasant 39-year-old 3 para 2 female 38-4/7 weeks who is admitted to labor and delivery with premature rupture membranes at approximately noon today and scheduled section for macrosomia and requesting permanent sterilization. I did rediscuss the fact that a tubal ligation is permanent with the patient. Patient is already scheduled for a primary section and tubal ligation this coming Sunday. I rediscuss this surgery and risks. Patient stands the surgery and risks of infection, bleeding, possible injury bowel, bladder, vessels, and other organs. Patient her stands if she gets a tubal ligation is considered permanent although is a failure rate of approximately 3-4 per thousand procedures done. All the pat ient's questions are answered written consent is obtained. Operative Findings: This is a viable male infant Apgars were 4 at 1 minute, 7, at 5 minutes, and 8 at 10 minutes. There was a significant amount (3000 mL) of amniotic fluid. Nuchal cord 1. Uterus, tubes, and ovaries appeared normal. Description of Procedure: This patient has a Barriga catheter placed to straight drain. She is subsequent taken to the operating room where she sat up and spinal anesthetic is administered without incident. With an adequate level of anesthesia she has abdominal prep and drape. Scalpels and taken and a Pfannenstiel skin incision is made. A second scalpel is taken down to the fascia and the fascia scored with a knife. Fascial incision extended bilaterally using the Jaffe scissors. Fascia is dissected off the rectus muscles sharply. Rectus muscles are peritoneum identified and entered sharply. Peritoneal incision extended superior and inferior without difficulty. Bladder blade is then placed. The bladder peritoneum was taken off the lower uterine segment sharply. Scalpels and taken a low transverse uterine incision then made. Using a hemostat I then entered the uterine cavity bluntly. Immediately there is loss of a large amount of amniotic fluid, this is measured at approximately 3000 mL. With fundal pressure we then deliver the infant's head. Mouth and nares are bulb suctioned however there is a large amount of fluid. There is a nuchal cord which is loose and reduced. With fundal pressure we then have deliver the rest of this 's body. This is a viable male infant Apgars are 4, 7, and 8. does appear to have lots of fluid and therefore the appropriate suction is done and the baby is taken to special care for observation. At this time the placenta was manually extracted intact. Uterus is then externalized and uterine incision demarcated with Phillip clamps. Excess debris is removed and the uterine cavity. Uterus is then closed using 0 Vicryl running fashion in 2 layers. Excellent hemostasis is noted. Bladder peritoneum was then reapproximated using a 3-0 Vicryl. Excess fluid is removed from the abdomen and pelvis. Then turned my attention to the left fallopian tube and approximately 4 cm from the cornual insertion a small window is made in the mesial salpinx with Bovie cautery. Using a 2-0 silk I doubly ligate a 2-3 cm segment of the tube. This is excised and handed off to pathology. Cauterization done of the tubal ends. Similar technique is done the right side with similar results. With good excellent hemostasis noted and placed the uterus back into the abdomen. Final inspection shows great hemostasis. The parietal peritoneum was then closed in 0 Vicryl running fashion. Rectus muscles are reapproximated Vicryl interrupted fashion. Fascia is then closed using 0 PDS. Fascial incision is closed with a 0 PDS. Fascial incision is intact and hemostatic. Subcutaneous tissues and closed using a 3-0 Vicryl. Skin is and closed using althea. All counts are correct 3. There are no complications. Mother is taken to her birthing suite in satisfactory condition the infant is taken to special care for observation and evaluation.
[2020-06-27] MEDS: LACTATED RINGERS 1,000 ML IV SCH ×2 (02:40→05:56)
[2020-06-27] MEDS: SENNOSIDES-DOCUSATE SODIUM 1 EACH TAB PO SCH ×2 (07:57→20:05)
[2020-06-27] MEDS: KETOROLAC 15 MG/ML 1 ML VIAL IVP PRN ×3 (07:57→21:02)
[2020-06-27] MEDS: HYDROcodone/APAP 5-325MG 1 EACH TAB PO PRN ×3 (09:30→17:59)
[2020-06-28] MEDS: HYDROcodone/APAP 5-325MG 1 EACH TAB PO PRN ×4 (00:01→19:28)
[2020-06-28] MEDS: LACTATED RINGERS 1,000 ML IV SCH (00:16)
[2020-06-28] MEDS: IBUPROFEN 600 MG TAB PO PRN ×4 (02:59→22:52)
[2020-06-28 07:06] LABS: Basophils % (A) 0 %; Eosinophils # (A) 0.2 k/uL (0-0.7); Eosinophils % (A) 2 %; HCT 29.1 % (34.0-46.0); Lymphocytes # (A) 1.5 k/uL (1.0-4.8); Lymphocytes % (A) 19 %; MCH 30.3 pg (25.0-35.0); MCHC 34.5 g/dL (31.0-37.0); MCV 87.7 fL (80.0-100.0); Mean Platelet Volume 6.7; Monocytes # (A) 0.6 k/uL (0-1.0); Monocytes % (A) 7 %; Neutrophils # (A) 5.3 k/uL (1.3-7.7); Neutrophils % (A) 69 %; Platelet Count 207 k/uL (150-450); RBC 3.31 m/uL (3.80-5.40); RDW 13.8 % (11.5-15.5); WBC 7.7 k/uL (3.8-10.6)
[2020-06-28] MEDS: SENNOSIDES-DOCUSATE SODIUM 1 EACH TAB PO SCH ×2 (08:27→19:28)
--- NOTE | 2020-06-28 08:58 | P.PNOBGPC ---
Subjective - Subjective Principal diagnosis: Postop day 1 Interval history: Mode is doing very well postop day 1. She is ambulating, voiding and tolerating her diet. She voices no complaints other than some increase in pain. We'll adjust Hooks dosing. All the questions are answered for her at this time. Patient reports: Reports appetite normal, Reports voiding normally, Reports pain well controlled, Reports ambulating normally : in NICU Objective - Vital Signs Latest vital signs: Vital Signs Temp Pulse Resp BP Pulse Ox 06/28/20 07:21 98.1 F 75 16 122/75 97 06/28/20 00:00 98.1 F 73 16 117/70 06/27/20 20:00 98.4 F 77 16 108/70 99 06/27/20 16:00 98.0 F 71 16 107/72 06/27/20 12:00 97.8 F 70 16 98/60 Intake and Output 06/27/20 06/28/20 06/28/20 22:59 06:59 14:59 Other: # Voids 2 1 - Exam Lungs: bilateral: normal Chest: Normal S1, Normal S2 Extremities: Present: normal Abdomen: Present: normal appearance, soft. Absent: distention, tenderness Incision: Present: normal, dry, intact Uterus: Present: normal, firm - Labs Labs: Abnormal Lab Results - Last 24 Hours (Table) 06/28/20 Range/Units 05:55 RBC 3.31 L (3.80-5.40) m/uL Hgb 10.0 L D (11.4-16.0) gm/dL Hct 29.1 L (34.0-46.0) %
[2020-06-28 23:38] VITALS: RESP 18
[2020-06-29] MEDS: HYDROcodone/APAP 5-325MG 1 EACH TAB PO PRN (07:15)
[2020-06-29] MEDS: SENNOSIDES-DOCUSATE SODIUM 1 EACH TAB PO SCH (07:17)
[2020-06-29 07:47] VITALS: BP 138/71; PULSE 73; TEMP 98
--- NOTE | 2020-06-29 07:52 | P.DS ---
Providers Date of admission: 06/26/20 23:39 Expected date of discharge: 06/29/20 Attending physician: Gavin Krishnan Primary care physician: Stated None Hospital Course: Mode is doing very well post op day 2. She is ambulating, voiding and she is tolerating her diet. She voices no complaints and is requesting discharge home today. Vital signs are stable and afebrile. Heart regular, lungs clear, extremities are without pain. Abdomen soft her uterus is firm and her lochia is reported light. Her incision is otherwise clean dry and intact. We'll plan to remove althea prior discharge. Prescriptions for pain medication and [facility] pharmacy, breast pump prescription provided. All questions are answered for her prior to discharge she is stable for discharge at this time. Patient Condition at Discharge: Good Plan - Discharge Summary New Discharge Prescriptions: New Ibuprofen [Motrin] 600 mg PO Q6HR PRN #30 tab PRN Reason: Pain HYDROcodone/APAP 5-325MG [[place] 5-325] 1 tab PO Q4HR PRN #30 tab PRN Reason: Pain No Action Pnv,Calcium 72/Iron/Folic Acid [ Plus Tablet] 1 tab PO DAILY Acetaminophen [Tylenol 8 Hour] 650 mg PO Q8H Discharge Medication List Acetaminophen [Tylenol 8 Hour] 650 mg PO Q8H 05/24/20 [History] Pnv,Calcium 72/Iron/Folic Acid [ Plus Tablet] 1 tab PO DAILY 05/24/20 [History] HYDROcodone/APAP 5-325MG [[place] 5-325] 1 tab PO Q4HR PRN #30 tab 06/29/20 [Rx] Ibuprofen [Motrin] 600 mg PO Q6HR PRN #30 tab 06/29/20 [Rx] Follow up Appointment(s)/Referral(s): Gavin Krishnan DO [Doctor of Osteopathic Medicine] - 1 Week Activity/Diet/Wound Care/Special Instructions: No heavy lifting, limit stairs and driving, and pelvic rest. If any high temperatures, heavy bleeding, or severe pain call my office Discharge Disposition: HOME SELF-CARE
== END 2020-06-29 10:30 | disposition home or self-care (01) | DRG 833 ==
LOC: FBPOP 23:15 → 4FBP 23:39
PROVIDERS: ADMIT Obstetrics & Gynecology; ATTEND Obstetrics & Gynecology
DX: O42.92 Full-term premature rupture of membranes, unspecified as to length of time between rupture and onset of labor (principal); O36.63X0 Maternal care for excessive fetal growth, third trimester, not applicable or unspecified; O40.3XX0 Polyhydramnios, third trimester, not applicable or unspecified; O69.81X0 Labor and delivery complicated by cord around neck, without compression, not applicable or unspecified; O99.824 Streptococcus B carrier state complicating childbirth; K21.9 Gastro-esophageal reflux disease without esophagitis; G89.29 Other chronic pain; M54.9 Dorsalgia, unspecified; O99.62 Diseases of the digestive system complicating childbirth; O99.892 Other specified diseases and conditions complicating childbirth; Z37.0 Single live birth; Z3A.38 38 weeks gestation of pregnancy; Z86.32 Personal history of gestational diabetes; Z98.1 Arthrodesis status; Z88.5 Allergy status to narcotic agent
CPT/HCPCS: 59025; 84112; 85025; 86850; 86900; 86901; 88302; 88307; 99213

== ENCOUNTER 2020-09-12 04:55 | Emergency (ER) | payer OTHER ==
[2020-09-12] MEDS ORDERED: HYDROmorphone 1 MG/ML 1 ML SYRINGE IVP STA (05:17)
[2020-09-12] MEDS ORDERED: SODIUM CHLORIDE 0.9% 500 ML 500 ML IV STA (05:17)
[2020-09-12] MEDS ORDERED: ONDANSETRON 4 MG/2 ML VIAL IVP STA (05:17)
[2020-09-12 05:31] LABS: Basophils % (A) 1 %; Eosinophils # (A) 0.4 k/uL (0-0.7); Eosinophils % (A) 6 %; HCT 36.3 % (34.0-46.0); HGB 12.4 gm/dL (11.4-16.0); Lymphocytes # (A) 1.9 k/uL (1.0-4.8); Lymphocytes % (A) 26 %; MCH 28.7 pg (25.0-35.0); MCHC 34.1 g/dL (31.0-37.0); MCV 84.3 fL (80.0-100.0); Mean Platelet Volume 6.4; Monocytes # (A) 0.5 k/uL (0-1.0); Monocytes % (A) 6 %; Neutrophils # (A) 4.2 k/uL (1.3-7.7); Neutrophils % (A) 59 %; Platelet Count 253 k/uL (150-450); RBC 4.31 m/uL (3.80-5.40); RDW 13.6 % (11.5-15.5); WBC 7.1 k/uL (3.8-10.6)
[2020-09-12 05:44] LABS: ALT 52 U/L (4-34); AST 41 U/L (14-36); African American GFR (CKD) >90 (>60 ml/min/1.73 sqM); Albumin 4.4 g/dL (3.5-5.0); Alkaline Phosphatase 70 U/L (38-126); Amylase 35 U/L (30-110); Anion Gap 10 mmol/L; Blood Urea Nitrogen 16 mg/dL (7-17); C Reactive Protein <5.0 mg/L (<10.0); Calcium 9.5 mg/dL (8.4-10.2); Carbon Dioxide 24 mmol/L (22-30); Chloride 104 mmol/L (98-107); Glucose 140 mg/dL (74-99); Lipase 74 U/L (23-300); Non-African American GFR(CKD) 88 (>60 ml/min/1.73 sqM); Potassium 4.3 mmol/L (3.5-5.1); Sodium 138 mmol/L (137-145); Total Bilirubin 0.5 mg/dL (0.2-1.3); Total Protein 7.4 g/dL (6.3-8.2)
[2020-09-12 06:45] LABS: Appearance,Urine Cloudy (Clear); Bacteria,Urine Many /hpf; Bilirubin,Urine Negative (Negative); Blood,Urine Small (Negative); Color,Urine Yellow; Glucose,Urine (UA) Negative (Negative); Ketones,Urine Negative (Negative); Leukocyte Esterase,Urine Large (Negative); Mucus,Urine Many /hpf; Nitrite,Urine Positive (Negative); PH, Urine 6.5 (5.0-8.0); Protein,Urine 1+ (Negative); RBC,Urine 47 /hpf (0-5); Specific Gravity,Urine 1.021 (1.001-1.035); Squamous Epithelial Cell,Urine 1 /hpf (0-4); Urobilinogen,Urine <2.0 mg/dL (<2.0); WBC,Urine >182 /hpf (0-5)
--- NOTE | 2020-09-12 07:43 | CT ---
EXAMINATION TYPE: CT abdomen pelvis wo con DATE OF EXAM: 09/12/2020 COMPARISON: 08/11/1716 HISTORY: Abdominal pain, back pain, right side CT DLP: 1138.9 mGycm Examination of the solid and hollow viscera is limited given the lack of contrast. FINDINGS: LUNG BASES: No evidence for nodule. No evidence for infiltrate. LIVER/GB: The gallbladder is unremarkable. No space-occupying hepatic lesion. PANCREAS: No pancreatic mass identified. No inflammatory process seen. SPLEEN: Mild splenomegaly at 13.3 cm craniocaudal dimension. No intrasplenic lesions seen. ADRENALS: No adrenal nodules identified. No evidence for thickening. KIDNEYS: There are approximately 3 adjacent calculi distal right ureter approximately 2 cm from the U VJ. The calculi measure up to 4 mm in size and result in severe right-sided hydroureteronephrosis. 2 mm nonobstructing calculus lower pole right kidney. Air is in the urinary bladder likely from recent catheterization. Correlate clinically. BOWEL: Appendix has a normal appearance. No evidence of bowel obstruction. No inflammatory process. Lymph nodes: No evidence for adenopathy greater than 1 cm. Abdominal aorta: Atheromatous changes seen. No evidence for aneurysm. Genital organs: No significant abnormality. Other: No significant abnormality. IMPRESSION: 1.There are approximately 3 adjacent calculi distal right ureter approximately 2 cm from the UVJ. The calculi measure up to 4 mm in size and result in severe right-sided hydroureteronephrosis. 2. Mild splenomegaly.
[2020-09-12] MEDS ORDERED: HYDROmorphone 0.5 MG/0.5 ML SYRINGE IVP STA (07:50)
[2020-09-12] MEDS ORDERED: TAMSULOSIN 0.4 MG CAP.ER.24H PO STA (07:51)
--- NOTE | 2020-09-12 07:51 | ED ---
Abdominal Pain HPI - General Chief Complaint: Abdominal Pain Stated Complaint: Rt side flank pain Time Seen by Provider: 09/12/20 05:11 Source: patient Mode of arrival: ambulatory Limitations: no limitations - History of Present Illness MD Complaint: flank pain -: hour(s) - Related Data Home Medications Medication Instructions Recorded Confirmed Acetaminophen [Tylenol 8 Hour] 650 mg PO Q8H 05/24/20 06/21/20 Pnv,Calcium 72/Iron/Folic Acid 1 tab PO DAILY 05/24/20 06/21/20 [ Plus Tablet] Previous Rx's Medication Instructions Recorded HYDROcodone/APAP 5-325MG [[place] 1 tab PO Q4HR PRN #30 tab 06/29/20 5-325] Ibuprofen [Motrin] 600 mg PO Q6HR PRN #30 tab 06/29/20 Cephalexin [Keflex] 500 mg PO Q6HR #28 cap 09/12/20 HYDROcodone/APAP 5-325MG [[place] 1 tab PO Q4HR PRN 3 Days #18 tab 09/12/20 5-325] Ondansetron Odt [Zofran ODT] 4 mg PO Q8HR PRN #10 tab 09/12/20 Tamsulosin [Flomax] 0.4 mg PO DAILY #14 cap 09/12/20 Allergies Allergy/AdvReac Type Severity Reaction Status Date / Time codeine AdvReac Severe Makes Verified 09/12/20 04:59 patient blackout morphine AdvReac Itching Verified 09/12/20 04:59 Review of Systems ROS Statement: Those systems with pertinent positive or pertinent negative responses have been documented in the HPI. ROS Other: All systems not noted in ROS Statement are negative. Past Medical History Past Medical History: No Reported History Additional Past Medical History / Comment(s): chronic back pain, gestational diabetes x 2 History of Any Multi-Drug Resistant Organisms: None Reported Past Surgical History: Back Surgery, Section Additional Past Surgical History / Comment(s): 2x back laminectomy, 1 fusion, Past Anesthesia/Blood Transfusion Reactions: No Reported Reaction Past Psychological History: No Psychological Hx Reported Smoking Status: Never smoker Past Alcohol Use History: None Reported Past Drug Use History: None Reported - Past Family History Mother Family Medical History: No Reported History General Exam Limitations: no limitations Course Vital Signs 09/12/20 04:59 Temperature 98 F Pulse Rate 57 L Respiratory 28 H Rate Blood Pressure 133/85 O2 Sat by Pulse 100 Oximetry Medical Decision Making - Lab Data Result diagrams: 09/12/20 05:25 09/12/20 05:25 Lab Results 09/12/20 09/12/20 09/12/20 Range/Units 05:25 05:25 06:33 WBC 7.1 (3.8-10.6) k/uL RBC 4.31 (3.80-5.40) m/uL Hgb 12.4 (11.4-16.0) gm/dL Hct 36.3 (34.0-46.0) % MCV 84.3 (80.0-100.0) fL MCH 28.7 (25.0-35.0) pg MCHC 34.1 (31.0-37.0) g/dL RDW 13.6 (11.5-15.5) % Plt Count 253 (150-450) k/uL MPV 6.4 Neutrophils % 59 % Lymphocytes % 26 % Monocytes % 6 % Eosinophils % 6 % Basophils % 1 % Neutrophils # 4.2 (1.3-7.7) k/uL Lymphocytes # 1.9 (1.0-4.8) k/uL Monocytes # 0.5 (0-1.0) k/uL Eosinophils # 0.4 (0-0.7) k/uL Basophils # 0.0 (0-0.2) k/uL Sodium 138 (137-145) mmol/L Potassium 4.3 (3.5-5.1) mmol/L Chloride 104 (98-107) mmol/L Carbon Dioxide 24 (22-30) mmol/L Anion Gap 10 mmol/L BUN 16 (7-17) mg/dL Creatinine 0.84 (0.52-1.04) mg/dL Est GFR (CKD-EPI)AfAm >90 (>60 ml/min/1.73 sqM) Est GFR (CKD-EPI)NonAf 88 (>60 ml/min/1.73 sqM) Glucose 140 H (74-99) mg/dL Calcium 9.5 (8.4-10.2) mg/dL Total Bilirubin 0.5 (0.2-1.3) mg/dL AST 41 H (14-36) U/L ALT 52 H (4-34) U/L Alkaline Phosphatase 70 (38-126) U/L C-Reactive Protein <5.0 (<10.0) mg/L Total Protein 7.4 (6.3-8.2) g/dL Albumin 4.4 (3.5-5.0) g/dL Amylase 35 (30-110) U/L Lipase 74 (23-300) U/L Urine Color Yellow Urine Appearance Cloudy H (Clear) Urine pH 6.5 (5.0-8.0) Ur Specific [place] 1.021 (1.001-1.035) Urine Protein 1+ H (Negative) Urine Glucose (UA) Negative (Negative) Urine Ketones Negative (Negative) Urine Blood Small H (Negative) Urine Nitrite Positive H (Negative) Urine Bilirubin Negative (Negative) Urine Urobilinogen <2.0 (<2.0) mg/dL Ur Leukocyte Esterase Large H (Negative) Urine RBC 47 H (0-5) /hpf Urine WBC >182 H (0-5) /hpf Ur Squamous Epith Cells 1 (0-4) /hpf Urine Bacteria Many H (None) /hpf Urine Mucus Many H (None) /hpf Urine HCG, Qual (Not Detectd) 09/12/20 Range/Units 06:33 WBC (3.8-10.6) k/uL RBC (3.80-5.40) m/uL Hgb (11.4-16.0) gm/dL Hct (34.0-46.0) % MCV (80.0-100.0) fL MCH (25.0-35.0) pg MCHC (31.0-37.0) g/dL RDW (11.5-15.5) % Plt Count (150-450) k/uL MPV Neutrophils % % Lymphocytes % % Monocytes % % Eosinophils % % Basophils % % Neutrophils # (1.3-7.7) k/uL Lymphocytes # (1.0-4.8) k/uL Monocytes # (0-1.0) k/uL Eosinophils # (0-0.7) k/uL Basophils # (0-0.2) k/uL Sodium (137-145) mmol/L Potassium (3.5-5.1) mmol/L Chloride (98-107) mmol/L Carbon Dioxide (22-30) mmol/L Anion Gap mmol/L BUN (7-17) mg/dL Creatinine (0.52-1.04) mg/dL Est GFR (CKD-EPI)AfAm (>60 ml/min/1.73 sqM) Est GFR (CKD-EPI)NonAf (>60 ml/min/1.73 sqM) Glucose (74-99) mg/dL Calcium (8.4-10.2) mg/dL Total Bilirubin (0.2-1.3) mg/dL AST (14-36) U/L ALT (4-34) U/L Alkaline Phosphatase (38-126) U/L C-Reactive Protein (<10.0) mg/L Total Protein (6.3-8.2) g/dL Albumin (3.5-5.0) g/dL Amylase (30-110) U/L Lipase (23-300) U/L Urine Color Urine Appearance (Clear) Urine pH (5.0-8.0) Ur Specific [place] (1.001-1.035) Urine Protein (Negative) Urine Glucose (UA) (Negative) Urine Ketones (Negative) Urine Blood (Negative) Urine Nitrite (Negative) Urine Bilirubin (Negative) Urine Urobilinogen (<2.0) mg/dL Ur Leukocyte Esterase (Negative) Urine RBC (0-5) /hpf Urine WBC (0-5) /hpf Ur Squamous Epith Cells (0-4) /hpf Urine Bacteria (None) /hpf Urine Mucus (None) /hpf Urine HCG, Qual Not Detected (Not Detectd) Disposition Clinical Impression: Kidney stone Disposition: [facility] Condition: Fair Instructions (If sedation given, give patient instructions): Kidney Stones (ED) Prescriptions: Tamsulosin [Flomax] 0.4 mg PO DAILY #14 cap Cephalexin [Keflex] 500 mg PO Q6HR #28 cap HYDROcodone/APAP 5-325MG [[place] 5-325] 1 tab PO Q4HR PRN 3 Days #18 tab PRN Reason: Pain Ondansetron Odt [Zofran ODT] 4 mg PO Q8HR PRN #10 tab PRN Reason: Nausea Is patient prescribed a controlled substance at d/c from ED?: Yes When asked, does pt state using other controlled substances?: No If prescribed controlled substance>3 days was MAPS reviewed?: Prescribed <3 Days If opioid is for acute pain is fill amount 7 days or less?: Yes If Rx opioid, was Start Talking consent form obtained?: Yes Referrals: Travis Bell MD [Primary Care Provider] - 1-2 days
[2020-09-12 08:46] VITALS: BP 118/69; PULSE 59; RESP 18; TEMP 98.3
== END 2020-09-12 08:47 | disposition other institution (70) ==
LOC: EC 04:55
DX: N13.2 Hydronephrosis with renal and ureteral calculous obstruction (principal); N39.0 Urinary tract infection, site not specified; R16.1 Splenomegaly, not elsewhere classified; G89.29 Other chronic pain; M54.9 Dorsalgia, unspecified; Z79.1 Long term (current) use of non-steroidal anti-inflammatories (NSAID); Z79.891 Long term (current) use of opiate analgesic; Z79.899 Other long term (current) drug therapy; Z88.5 Allergy status to narcotic agent; Z98.1 Arthrodesis status; Z86.32 Personal history of gestational diabetes
CPT/HCPCS: 36415; 80053; 82150; 83690; 85025; 86140; 81001; 81025; 87086; 87077; 87186; 74176; J2405; J0696; J1170 ×2; 96365; 96375; 96376; 99285

== ENCOUNTER 2021-04-27 19:35 | Emergency (ER) | payer OTHER ==
[2021-04-27 19:44] VITALS: RESP 16
[2021-04-27] MEDS ORDERED: KETOROLAC 15 MG/ML 1 ML VIAL IVP STA (19:58)
[2021-04-27] MEDS ORDERED: METOCLOPRAMIDE 5 MG/ML 2 ML VIAL IVP STA (19:58)
[2021-04-27] MEDS ORDERED: diphenhydrAMINE 50 MG/ML 1 ML VIAL IVP STA (19:58)
[2021-04-27] MEDS ORDERED: SODIUM CHLORIDE 0.9% 1,000 ML IV ONE (19:58)
--- NOTE | 2021-04-27 20:02 | ED ---
General Adult HPI - General Chief complaint: Headache Stated complaint: Headache,Abd Pain Time Seen by Provider: 04/27/21 19:52 Source: patient Mode of arrival: ambulatory Limitations: no limitations - History of Present Illness Initial comments: Patient is 40 year old female patietn presenting to ED for 4 day old migraine headache. Patient reports frontal and occipital headache pain,with light sensitivity, and associated nausea related to pain. Patient reports taking naproxen daily for headaches without relief. Patient denies any fever, appetite or difficulties keeping fluids down. Patient also voices complaint of right- sided flank pain, with history of kidney stones and past. - Related Data Home Medications Medication Instructions Recorded Confirmed Acetaminophen [Tylenol 8 Hour] 650 mg PO Q8H 05/24/20 06/21/20 Pnv,Calcium 72/Iron/Folic Acid 1 tab PO DAILY 05/24/20 06/21/20 [ Plus Tablet] Previous Rx's Medication Instructions Recorded HYDROcodone/APAP 5-325MG [[place] 1 tab PO Q4HR PRN #30 tab 06/29/20 5-325] Ibuprofen [Motrin] 600 mg PO Q6HR PRN #30 tab 06/29/20 Cephalexin [Keflex] 500 mg PO Q6HR #28 cap 09/12/20 HYDROcodone/APAP 5-325MG [[place] 1 tab PO Q4HR PRN 3 Days #18 tab 09/12/20 5-325] Ondansetron Odt [Zofran ODT] 4 mg PO Q8HR PRN #10 tab 09/12/20 Tamsulosin [Flomax] 0.4 mg PO DAILY #14 cap 09/12/20 Cephalexin [Keflex] 500 mg PO Q8HR #21 cap 04/27/21 Allergies Allergy/AdvReac Type Severity Reaction Status Date / Time codeine AdvReac Severe Makes Verified 04/27/21 19:38 patient blackout morphine AdvReac Itching Verified 04/27/21 19:38 Review of Systems ROS Statement: Those systems with pertinent positive or pertinent negative responses have been documented in the HPI. ROS Other: All systems not noted in ROS Statement are negative. Past Medical History Past Medical History: No Reported History Additional Past Medical History / Comment(s): chronic back pain, gestational diabetes x 2 History of Any Multi-Drug Resistant Organisms: None Reported Past Surgical History: Back Surgery, Section Additional Past Surgical History / Comment(s): 2x back laminectomy, 1 fusion, Past Anesthesia/Blood Transfusion Reactions: No Reported Reaction Past Psychological History: No Psychological Hx Reported Smoking Status: Never smoker Past Alcohol Use History: None Reported Past Drug Use History: None Reported - Past Family History Mother Family Medical History: No Reported History General Exam Limitations: no limitations General appearance: alert, in distress (pain) Head exam: Present: atraumatic, normocephalic, normal inspection Eye exam: Present: normal appearance, PERRL, EOMI. Absent: scleral icterus, conjunctival injection, periorbital swelling ENT exam: Present: normal exam, mucous membranes moist Neck exam: Present: normal inspection. Absent: tenderness, meningismus, lymphadenopathy Respiratory exam: Present: normal lung sounds bilaterally. Absent: respiratory distress, wheezes, rales, rhonchi, stridor Cardiovascular Exam: Present: regular rate, normal rhythm, normal heart sounds. Absent: systolic murmur, diastolic murmur, rubs, gallop, clicks GI/Abdominal exam: Present: soft, normal bowel sounds. Absent: distended, tenderness, guarding, rebound, rigid Back exam: Present: tenderness, CVA tenderness (R) Neurological exam: Present: alert, oriented X3, CN II-XII intact Psychiatric exam: Present: normal affect, normal mood Skin exam: Present: warm, dry, intact, normal color. Absent: rash Course Vital Signs 04/27/21 19:37 Temperature 98.0 F Pulse Rate 77 Respiratory 16 Rate Blood Pressure 119/69 O2 Sat by Pulse 100 Oximetry Medical Decision Making - Medical Decision Making 40-year-old presented for migraine headache. Patient was given migraine cocktail which greatly improved her headache she has no neurological deficits. Patient's found to have urinary tract infection patient was discharged after Rocephin was placed on Keflex return parameters were discussed. - Lab Data Lab Results 04/27/21 04/27/21 Range/Units 20:20 20:20 Urine Color Yellow Urine Appearance Cloudy H (Clear) Urine pH 5.5 (5.0-8.0) Ur Specific [place] 1.025 (1.001-1.035) Urine Protein Trace H (Negative) Urine Glucose (UA) Negative (Negative) Urine Ketones Negative (Negative) Urine Blood Negative (Negative) Urine Nitrite Negative (Negative) Urine Bilirubin Negative (Negative) Urine Urobilinogen 2.0 (<2.0) mg/dL Ur Leukocyte Esterase Moderate H (Negative) Urine RBC 3 (0-5) /hpf Urine WBC 24 H (0-5) /hpf Ur Squamous Epith Cells 4 (0-4) /hpf Urine Bacteria Few H (None) /hpf Urine Mucus Few H (None) /hpf Urine HCG, Qual Not Detected (Not Detectd) Disposition Clinical Impression: Migraine headache, UTI (urinary tract infection) Disposition: HOME SELF-CARE Condition: Stable Instructions (If sedation given, give patient instructions): Acute Headache (ED) Additional Instructions: Please return to the Emergency Department if symptoms worsen or any other concerns. Prescriptions: Cephalexin [Keflex] 500 mg PO Q8HR #21 cap Is patient prescribed a controlled substance at d/c from ED?: No Referrals: Travis Bell MD [Primary Care Provider] - 1-2 days Time of Disposition: 21:41
[2021-04-27 21:25] LABS: Appearance,Urine Cloudy (Clear); Bacteria,Urine Few /hpf; Bilirubin,Urine Negative (Negative); Blood,Urine Negative (Negative); Color,Urine Yellow; Glucose,Urine (UA) Negative (Negative); Ketones,Urine Negative (Negative); Leukocyte Esterase,Urine Moderate (Negative); Mucus,Urine Few /hpf; Nitrite,Urine Negative (Negative); PH, Urine 5.5 (5.0-8.0); Protein,Urine Trace (Negative); RBC,Urine 3 /hpf (0-5); Specific Gravity,Urine 1.025 (1.001-1.035); Squamous Epithelial Cell,Urine 4 /hpf (0-4); WBC,Urine 24 /hpf (0-5)
[2021-04-27] MEDS ORDERED: cefTRIAXone IN SWFI 1,000 MG/10 ML SYRINGE IVP STA (21:37)
[2021-04-27 22:28] VITALS: BP 118/78; PULSE 74; TEMP 98.7
== END 2021-04-27 22:26 | disposition home or self-care (01) ==
LOC: EC 19:35
DX: G43.909 Migraine, unspecified, not intractable, without status migrainosus (principal); N39.0 Urinary tract infection, site not specified; Z88.5 Allergy status to narcotic agent
CPT/HCPCS: 81001; 81025; 87086; 99284; 96374; 96375; 96361; J1200; J2765; J0696; J1885

== ENCOUNTER → 2021-05-23 | Outpatient (CLI) | payer OTHER ==
--- NOTE | 2021-05-24 12:26 | XR ---
EXAMINATION TYPE: XR thoracic spine complete DATE OF EXAM: 05/23/2021 COMPARISON: None HISTORY: Back pain TECHNIQUE: 3 view thoracic spine FINDINGS: There is mild S-shaped scoliosis within the thoracic spine. There are 12 thoracic type vert ebral bodies. Pedicles are intact. Disc heights are preserved. Vertebral body heights are preserved. IMPRESSION: 1. Mild scoliosis.
--- NOTE | 2021-05-24 12:28 | XR ---
EXAMINATION TYPE: XR lumbar spine 2 or 3V DATE OF EXAM: 05/23/2021 COMPARISON: 08/20/2018 HISTORY: Back pain TECHNIQUE: 3 view lumbar spine FINDINGS: There are 5 lumbar-type vertebral bodies. L1-L5 for pedicles are intact. L5 and S1 pedicles are not visualized with pedicle screws and fixation rods present. Vertebral body heights are preserv ed. Disc heights have some narrowing posteriorly at L4-5 and diffusely L5-S1 but are otherwise intact . No significant change from comparison. IMPRESSION: 1. Degenerative disc change and postsurgical changes L5-S1 with some posterior disc space narrowing L4-5.
== END | disposition home or self-care (01) ==
LOC: RADXRMAIN 17:02
PROVIDERS: ATTEND Family Medicine
DX: M48.061 Spinal stenosis, lumbar region without neurogenic claudication (principal); M51.37 Other intervertebral disc degeneration, lumbosacral region
CPT/HCPCS: 72072; 72100

== ENCOUNTER 2022-07-24 23:04 | Emergency (ER) | payer OTHER ==
[2022-07-24 23:16] VITALS: BP 147/68; PULSE 72; RESP 16; TEMP 97.4
[2022-07-24] MEDS ORDERED: DEXAMETHASONE SOD PHOSPHATE 10 MG/ML 1 ML VIAL IVP STA (23:35)
[2022-07-24] MEDS ORDERED: KETOROLAC 15 MG/ML 1 ML VIAL IVP STA (23:35)
[2022-07-24] MEDS ORDERED: SODIUM CHLORIDE 0.9% 1,000 ML IV STA (23:35)
[2022-07-24] MEDS ORDERED: diphenhydrAMINE 50 MG/ML 1 ML VIAL IVP STA (23:35)
--- NOTE | 2022-07-24 23:44 | ED ---
General Adult HPI - General Chief complaint: Headache Stated complaint: Migraine Time Seen by Provider: 07/24/22 23:25 Source: patient, RN notes reviewed Mode of arrival: ambulatory Limitations: no limitations - History of Present Illness Initial comments: 5-year-old female presents to the emergency department with complaints of migraine headache, onset 3 days prior to arrival. States pain is primarily on the left side of her head and radiates front to back. Patient states she has taken Tylenol, Motrin, aspirin, and naproxen at home with minimal improvement. States symptoms are worsened with bright lights and noisy environments. Accompanying symptoms include nausea. Pain is unchanged with movement of head and neck. Denies fever, chills, dizziness, chest pain, cough, shortness of breath, abdominal pain, vomiting, diarrhea, or dysuria. - Related Data Home Medications Medication Instructions Recorded Confirmed Acetaminophen [Tylenol 8 Hour] 650 mg PO Q8H 05/24/20 06/21/20 Vit No.180/Iron/Folic 1 tab PO DAILY 05/24/20 06/21/20 [ Plus Tablet] Previous Rx's Medication Instructions Recorded HYDROcodone/APAP 5-325MG [[place] 1 tab PO Q4HR PRN #30 tab 06/29/20 5-325] Ibuprofen [Motrin] 600 mg PO Q6HR PRN #30 tab 06/29/20 Cephalexin [Keflex] 500 mg PO Q6HR #28 cap 09/12/20 HYDROcodone/APAP 5-325MG [[place] 1 tab PO Q4HR PRN 3 Days #18 tab 09/12/20 5-325] Ondansetron Odt [Zofran ODT] 4 mg PO Q8HR PRN #10 tab 09/12/20 Tamsulosin [Flomax] 0.4 mg PO DAILY #14 cap 09/12/20 Cephalexin [Keflex] 500 mg PO Q8HR #21 cap 04/27/21 Allergies Allergy/AdvReac Type Severity Reaction Status Date / Time codeine AdvReac Severe Makes Verified 07/24/22 23:16 patient blackout morphine AdvReac Itching Verified 07/24/22 23:16 Review of Systems ROS Statement: Those systems with pertinent positive or pertinent negative responses have been documented in the HPI. ROS Other: All systems not noted in ROS Statement are negative. Past Medical History Past Medical History: No Reported History Additional Past Medical History / Comment(s): chronic back pain, gestational diabetes x 2 History of Any Multi-Drug Resistant Organisms: None Reported Past Surgical History: Back Surgery, Section Additional Past Surgical History / Comment(s): 2x back laminectomy, 1 fusion, Past Anesthesia/Blood Transfusion Reactions: No Reported Reaction Past Psychological History: No Psychological Hx Reported Smoking Status: Never smoker Past Alcohol Use History: None Reported Past Drug Use History: None Reported - Past Family History Mother Family Medical History: No Reported History General Exam Limitations: no limitations General appearance: alert, in no apparent distress Head exam: Present: atraumatic, normocephalic Eye exam: Present: normal appearance. Absent: scleral icterus, conjunctival injection Neck exam: Present: normal inspection, full ROM. Absent: tenderness, meningismus, lymphadenopathy Respiratory exam: Present: normal lung sounds bilaterally. Absent: respiratory distress, wheezes, rales, rhonchi, stridor Cardiovascular Exam: Present: regular rate, normal rhythm, normal heart sounds. Absent: systolic murmur, diastolic murmur, rubs, gallop, clicks GI/Abdominal exam: Present: soft, normal bowel sounds. Absent: distended, tenderness, guarding, rebound, rigid Neurological exam: Present: alert, oriented X3 Expanded Patient oriented to: Present: person, place, time Speech: Present: fluid speech Motor strength exam: RUE: 5, LUE: 5, RLE: 5, LLE: 5 Eye Response: (4) open spontaneously Motor Response: (6) obeys commands Verbal Response: (5) oriented Efe Total: 15 Psychiatric exam: Present: flat affect Course Vital Signs 07/24/22 23:12 Temperature 97.4 F L Pulse Rate 72 Respiratory 16 Rate Blood Pressure 147/68 O2 Sat by Pulse 99 Oximetry - Reevaluation(s) Reevaluation #1: 07/25/22 00:55 Upon reassessment, patient reports feeling significantly improved. She verbalizes readiness for discharge. Medical Decision Making - Medical Decision Making 41-year-old female with a past medical history of migraines presents to the emergency Department with complaints of headache consistent with her typical migraines, though worse in intensity tonight. Upon exam, patient appears to be feeling poorly but in no acute distress. She has mild nausea and photophobia. Neurologically intact with no focal deficits. Was given migraine cocktail with significant improvement. Patient verbalizes readiness for discharge. Encouraged to follow up with PCP for a recheck this week. Return parameters were discussed in detail. Patient verbalizes understanding and agrees with this plan. Attending: Jamie. Was pt. sent in by a medical professional or institution? @ No Did you speak to anyone other than the patient for history? @ No Did you review nursing and triage notes? @ Yes, agree Were old charts reviewed? @ No Differential Diagnosis? @ Nonspecific headache, migraine headache, viral illness EKG interpreted by me (3pts min.)? @ No X-rays interpreted by me (1pt min.)? @ No CT interpreted by me (1pt min.)? @ No U/S interpreted by me (1pt. min.)? @ No What testing was considered but not performed? (CT, X-rays, U/S, labs)? Why? @ Considered CT of brain, however headache is consistent with history of migraines therefore CT was deferred. What meds were considered but not given? Why? @ None Did you discuss the management of the patient with other professionals? @ No Did you reconcile home meds? @ No Was smoking cessation discussed for >3mins.? @ No Was critical care preformed (if so, how long)? @ No Were there social determinants of health that impacted care today? How? (Homelessness, low income, unemployed, alcoholism, drug addiction, transportation, low edu. Level, literacy, decrease access to med. care, longterm, rehab)? @ None Was there de-escalation of care discussed even if they declined? (Discuss DNR or withdrawal of care, Hospice)? @ No What co-morbidities impacted this encounter? (DM, HTN, Smoking, COPD, CAD, Cancer, CVA, Hep., AIDS, mental health diagnosis, sleep apnea, morbid obesity)? @ None Was patient admitted / discharged? @ Discharged Undiagnosed new problem with uncertain prognosis? @ No Drug Therapy requiring intensive monitoring for toxicity (Heparin, Nitro, Insulin, Cardizem)? @ No Were any procedures done? @ None Diagnosis/symptom? @ Migraine headache Acute, or Chronic, or Acute on Chronic? @ Acute Uncomplicated (without systemic symptoms) or Complicated (systemic symptoms)? @ Uncomplicated Side effects of treatment? @ Mild sedation from Benadryl administered. Exacerbation, Progression, or Severe Exacerbation] @ No Poses a threat to life or bodily function? @ No Disposition Clinical Impression: Migraine headache Disposition: HOME SELF-CARE Condition: Stable Instructions (If sedation given, give patient instructions): Migraine Headache (ED) Additional Instructions: Rest. Increase fluids. Avoid any known triggers. Follow-up with your PCP for a recheck this week as needed. Return to the emergency department with any new, worsening, or concerning symptoms. Is patient prescribed a controlled substance at d/c from ED?: No Referrals: None,Stated [Primary Care Provider] - 1-2 days Time of Disposition: 00:56
== END 2022-07-25 01:13 | disposition home or self-care (01) ==
LOC: EC 23:04
DX: G43.909 Migraine, unspecified, not intractable, without status migrainosus (principal); Z88.5 Allergy status to narcotic agent
CPT/HCPCS: 99284; 96374; 96375 ×2; 96361; J1200; J1100; J1885

== ENCOUNTER 2023-01-09 19:17 | Emergency (ER) | payer OTHER ==
[2023-01-09 19:37] VITALS: RESP 18
[2023-01-09 20:55] LABS: Appearance,Urine Cloudy (Clear); Bacteria,Urine Occasional /hpf; Bilirubin,Urine Negative (Negative); Blood,Urine Negative (Negative); Color,Urine Yellow; Glucose,Urine (UA) Negative (Negative); Ketones,Urine Negative (Negative); Leukocyte Esterase,Urine Large (Negative); Mucus,Urine Rare /hpf; Nitrite,Urine Negative (Negative); PH, Urine 6.5 (5.0-8.0); Protein,Urine Negative (Negative); RBC,Urine 2 /hpf (0-5); Squamous Epithelial Cell,Urine <1 /hpf (0-4); Urobilinogen,Urine <2.0 mg/dL (<2.0); WBC,Urine 48 /hpf (0-5)
[2023-01-09] MEDS ORDERED: CEPHALEXIN 500 MG CAP PO STA (21:32)
[2023-01-09] MEDS ORDERED: PHENAZOPYRIDINE 200 MG TAB PO STA (21:32)
--- NOTE | 2023-01-09 21:44 | ED ---
Female Urogenital HPI - General Chief complaint: Urogenital Stated complaint: Urogenital Time Seen by Provider: 01/09/23 19:35 Source: patient Mode of arrival: ambulatory Limitations: no limitations - History of Present Illness Initial comments: 42-year-old female with past mental history of chronic back pain who presents to the emergency department reporting dysuria. States has been going on for the past couple of weeks however has gotten more intense. She has a cramping sensation in her right side. She has not developed intense suprapubic abdominal pain especially with urinating. States that she has to go frequently and wakes up 5 times per night. It crystal when she urinates. She denies any vaginal bleeding or discharge. No concern for . No hematuria. No black or bloody stools. She has not attempted to take any medications for her symptoms. She does have a history of kidney stones but states this does not seem similar. No other alleviating, precipitating or modifying factors - Related Data Home Medications Medication Instructions Recorded Confirmed Acetaminophen [Tylenol 8 Hour] 650 mg PO Q8H 05/24/20 06/21/20 Vit No.180/Iron/Folic 1 tab PO DAILY 05/24/20 06/21/20 [ Plus Tablet] Previous Rx's Medication Instructions Recorded HYDROcodone/APAP 5-325MG [[place] 1 tab PO Q4HR PRN #30 tab 06/29/20 5-325] Ibuprofen [Motrin] 600 mg PO Q6HR PRN #30 tab 06/29/20 Cephalexin [Keflex] 500 mg PO Q6HR #28 cap 09/12/20 HYDROcodone/APAP 5-325MG [[place] 1 tab PO Q4HR PRN 3 Days #18 tab 09/12/20 5-325] Ondansetron Odt [Zofran ODT] 4 mg PO Q8HR PRN #10 tab 09/12/20 Tamsulosin [Flomax] 0.4 mg PO DAILY #14 cap 09/12/20 Cephalexin [Keflex] 500 mg PO Q8HR #21 cap 04/27/21 Cephalexin [Keflex] 500 mg PO Q6HR #28 cap 01/09/23 Phenazopyridine [Pyridium] 200 mg PO TID #6 tablet 01/09/23 Allergies Allergy/AdvReac Type Severity Reaction Status Date / Time codeine AdvReac Severe Makes Verified 01/09/23 19:34 patient blackout morphine AdvReac Itching Verified 01/09/23 19:34 Review of Systems ROS Statement: Those systems with pertinent positive or pertinent negative responses have been documented in the HPI. ROS Other: All systems not noted in ROS Statement are negative. Past Medical History Past Medical History: No Reported History Additional Past Medical History / Comment(s): chronic back pain, gestational diabetes x 2 History of Any Multi-Drug Resistant Organisms: None Reported Past Surgical History: Back Surgery, Section Additional Past Surgical History / Comment(s): 2x back laminectomy, 1 fusion, Past Anesthesia/Blood Transfusion Reactions: No Reported Reaction Past Psychological History: No Psychological Hx Reported Smoking Status: Never smoker Past Alcohol Use History: None Reported Past Drug Use History: None Reported - Past Family History Mother Family Medical History: No Reported History General Exam Limitations: no limitations General appearance: alert, in no apparent distress Head exam: Present: atraumatic, normocephalic, normal inspection Eye exam: Present: normal appearance, PERRL, EOMI. Absent: scleral icterus, conjunctival injection, periorbital swelling ENT exam: Present: normal exam, mucous membranes moist Neck exam: Present: normal inspection. Absent: tenderness, meningismus, lymphadenopathy Respiratory exam: Present: normal lung sounds bilaterally. Absent: respiratory distress, wheezes, rales, rhonchi, stridor Cardiovascular Exam: Present: regular rate, normal rhythm, normal heart sounds. Absent: systolic murmur, diastolic murmur, rubs, gallop, clicks GI/Abdominal exam: Present: soft, normal bowel sounds. Absent: distended, tenderness, guarding, rebound, rigid Extremities exam: Present: normal inspection, full ROM, normal capillary refill. Absent: tenderness, pedal edema, joint swelling, calf tenderness Back exam: Present: normal inspection Neurological exam: Present: alert, oriented X3, CN II-XII intact Psychiatric exam: Present: normal affect, normal mood Skin exam: Present: warm, dry, intact, normal color. Absent: rash Course Vital Signs 01/09/23 01/09/23 19:34 22:27 Temperature 97.8 F 98.1 F Pulse Rate 74 86 Respiratory 18 18 Rate Blood Pressure 125/81 109/72 O2 Sat by Pulse 99 99 Oximetry Medical Decision Making - Medical Decision Making Was pt. sent in by a medical professional or institution (FERNANDO Massey, DEPUTY SHERIFF K9 HANDLER, urgent care, hospital, or detention...) When possible be specific @ -No Did you speak to anyone other than the patient for history (EMS, parent, family, police, friend...)? What history was obtained from this source @ -No Did you review nursing and triage notes (agree or disagree)? Why? @ -I reviewed and agree with nursing and triage notes Were old charts reviewed (outside hosp., previous admission, EMS record, old EKG, old radiological studies, urgent care reports/EKG's, detention records)? Report findings @ -No Differential Diagnosis (chest pain, altered mental status, abdominal pain women, abdominal pain men, vaginal bleeding, weakness, fever, dyspnea, syncope, headache, dizziness, GI bleed, back pain, seizure, CVA, palpatations, mental health, musculoskeletal)? @ -renal stone, pyelonephritis, cystitis, hydronephrosis EKG interpreted by me (3pts min.). @ -Not done X-rays interpreted by me (1pt min.). @ -None done CT interpreted by me (1pt min.). @ -None done U/S interpreted by me (1pt. min.). @ -None done What testing was considered but not performed or refused? (CT, X-rays, U/S, labs)? Why? @ -abd ct but patient refused What meds were considered but not given or refused? Why? @ -None Did you discuss the management of the patient with other professionals (professionals i.e. FERNANDO Massey, DEPUTY SHERIFF K9 HANDLER, lab, RT, psych nurse, child welfare social worker, lead generation marketing manager, teacher, conservation enforcement officer, ed case manager)? Give summary @ -No Was smoking cessation discussed for >3mins.? @ -No Was critical care preformed (if so, how long)? @ -no Were there social determinants of health that impacted care today? How? (Homelessness, low income, unemployed, alcoholism, drug addiction, transportation, low edu. Level, literacy, decrease access to med. care, residential, rehab)? @ -No Was there de-escalation of care discussed even if they declined (Discuss DNR or withdrawal of care, Hospice)? DNR status @ -No What co-morbidities impacted this encounter? (DM, HTN, Smoking, COPD, CAD, Cancer, CVA, ARF, Chemo, Hep., AIDS, mental health diagnosis, sleep apnea, morbid obesity)? @ -kidney stone hx Was patient admitted / discharged? Hospital course, mention meds given and route, prescriptions, significant lab abnormalities, going to OR and other pertinent info. @ -Upon arrival patient was placed into room 29. There are history and physical exam was performed. I did discuss the diagnosis, differential and treatment options. The patient does not want to proceed with a CT at this time. She is agreeable to attempting antibiotics to see if this alleviates her symptoms. Her urinalysis does demonstrate large leukocyte esterase, 40 white blood cells and occasional bacteria. She needs to follow up with her doctor in 2-4 days. Should her symptoms not improve she will need workup for kidney stone. Patient understood this and was agreeable to the plan. Keflex is ordered 4 times a day due to her reported right flank pain and concern for possible pyelonephritis. She also be placed on Pyridium. Return for any new or worsening symptoms. Patient agreeable with was discharged in stable condition Undiagnosed new problem with uncertain prognosis? @ -Yes Drug Therapy requiring intensive monitoring for toxicity (Heparin, Nitro, Insulin, Cardizem)? @ -No Were any procedures done? @ -No Diagnosis/symptom? @ -acute flank pain, acute pyelonephritis Acute, or Chronic, or Acute on Chronic? @ -acute Uncomplicated (without systemic symptoms) or Complicated (systemic symptoms)? @ -complicated Side effects of treatment? @ -no Exacerbation, Progression, or Severe Exacerbation? @ -No Poses a threat to life or bodily function? How? (Chest pain, [place], [place], pneumonia, PE, COPD, DKA, ARF, appy, cholecystitis, CVA, Diverticulitis, Homicidal, Suicidal, threat to staff... and all critical care pts) @ -no - Lab Data Lab Results 01/09/23 Range/Units 19:56 Urine Color Yellow Urine Appearance Cloudy H (Clear) Urine pH 6.5 (5.0-8.0) Ur Specific [place] 1.020 (1.001-1.035) Urine Protein Negative (Negative) Urine Glucose (UA) Negative (Negative) Urine Ketones Negative (Negative) Urine Blood Negative (Negative) Urine Nitrite Negative (Negative) Urine Bilirubin Negative (Negative) Urine Urobilinogen <2.0 (<2.0) mg/dL Ur Leukocyte Esterase Large H (Negative) Urine RBC 2 (0-5) /hpf Urine WBC 48 H (0-5) /hpf Ur Squamous Epith Cells <1 (0-4) /hpf Urine Bacteria Occasional H (None) /hpf Urine Mucus Rare H (None) /hpf Disposition Clinical Impression: Dysuria, Abnormal finding on urinalysis Disposition: HOME SELF-CARE Condition: Stable Instructions (If sedation given, give patient instructions): Urinary Tract Infection in Women (ED) Additional Instructions: Please take the antibiotic 4 times daily starting tomorrow. May take the Pyridium for pain. Follow-up with your doctor. If your symptoms persist you may need workup for a kidney stone Prescriptions: Cephalexin [Keflex] 500 mg PO Q6HR #28 cap Phenazopyridine [Pyridium] 200 mg PO TID #6 tablet Is patient prescribed a controlled substance at d/c from ED?: No Referrals: Song Rojo MD [Primary Care Provider] - 1-2 days Time of Disposition: 21:44
[2023-01-09 22:29] VITALS: BP 109/72; PULSE 86; TEMP 98.1
== END 2023-01-09 22:29 | disposition home or self-care (01) ==
LOC: EC 19:17
DX: R30.0 Dysuria (principal); R82.90 Unspecified abnormal findings in urine; Z88.5 Allergy status to narcotic agent
CPT/HCPCS: 81001; 99283

== ENCOUNTER → 2023-06-12 | Outpatient (CLI) | payer OTHER ==
--- NOTE | 2023-06-12 14:39 | MM ---
Reason for Exam: Screening (asymptomatic). Baseline mammogram. Patient History: Menarche at age 12. First Full-Term at age 28. Premenopausal. Maternal grandmother had ovarian cancer under age 50. Mother had ovarian cancer under age 50. Last menstrual period: 05/19/2023 Risk Values: Do 5 year model risk: 0.7%. NCI Lifetime model risk: 12.0%. Prior Study Comparison: Patient's first Mammogram. Tissue Density: There are scattered fibroglandular densities. Findings: Analyzed By CAD. There is no suspicious group of microcalcifications or new suspicious mass. Overall Assessment: Negative, BI-RAD 1 Management: Screening Mammogram of both breasts in [address] [facility] will attempt to contact patient to return for supplemental views and ultrasound if indicated. Patient should continue monthly self-breast exams. A clinical breast exam by your physician is recommended on an annual basis. This exam should not preclude additional follow-up of suspicious palpable abnormalities. Note on Do scores and lifetime risk: 1. A Do score greater than 3% is considered moderate risk. If this is the case, consider specialist referral to assess eligibility for a risk reducing agent. 2. If overall lifetime risk for the development of breast cancer is 20% or higher, the patient may qualify for future screening with alternating mammogram and breast MRI. Electronically signed and approved by: Harman Corrales DO
== END | disposition home or self-care (01) ==
LOC: RADMAMWWP 07:27
PROVIDERS: ATTEND Family Medicine
DX: Z12.31 Encounter for screening mammogram for malignant neoplasm of breast (principal)
CPT/HCPCS: 77063; 77067

== ENCOUNTER 2023-09-15 13:26 | Emergency (ER) | payer OTHER ==
[2023-09-15 13:58] VITALS: BP 113/76; RESP 18; TEMP 100.9
[2023-09-15] MEDS: SODIUM CHLORIDE 0.9% 1,000 ML IV STA (15:03)
[2023-09-15] MEDS: METOCLOPRAMIDE 5 MG/ML 2 ML VIAL IVP STA (15:04)
[2023-09-15] MEDS: diphenhydrAMINE 50 MG/ML 1 ML VIAL IVP STA (15:06)
[2023-09-15] MEDS: IBUPROFEN 600 MG TAB PO STA (15:06)
[2023-09-15] MEDS: DEXAMETHASONE SOD PHOSPHATE 10 MG/ML 1 ML VIAL IVP STA (15:06)
--- NOTE | 2023-09-15 15:48 | ED ---
URI HPI - General Chief Complaint: Upper Respiratory Infection Stated Complaint: Migraine/Body aches Time Seen by Provider: 09/15/23 13:35 Source: patient Mode of arrival: ambulatory Limitations: no limitations - History of Present Illness Initial Comments: 42-year-old female presents emergency department reporting fevers, myalgia and migraine. States that her older son had been sick with influenza. Patient is now sick and presents with her younger son. She states she has a tendency to get migraines and this illness has caused her to have one. She has not taking anything for symptoms before coming in. She denies any nausea or vomiting. No abdominal pain. No concern for . No visual changes. No other alleviating, precipitating or modifying factors - Related Data Home Medications Medication Instructions Recorded Confirmed Aspirin/Acetaminophen/Caffeine 1 tab PO Q8H PRN 04/13/23 04/13/23 [Excedrin Migraine Caplet] HYDROcodone/APAP 10-325MG [[place] 1 tab PO TID PRN 04/13/23 04/13/23 10-325] Previous Rx's Medication Instructions Recorded Ondansetron Odt [Zofran Odt] 4 mg PO Q8HR PRN #10 tab 04/13/23 Acetaminophen Tab [Tylenol] 650 mg PO Q8HR #30 tab 09/15/23 Ibuprofen 600 mg PO Q8H #30 tab 09/15/23 Allergies Allergy/AdvReac Type Severity Reaction Status Date / Time codeine AdvReac Severe Makes Verified 09/15/23 13:35 patient blackout morphine AdvReac Itching Verified 09/15/23 13:35 Review of Systems ROS Statement: Those systems with pertinent positive or pertinent negative responses have been documented in the HPI. ROS Other: All systems not noted in ROS Statement are negative. Past Medical History Past Medical History: No Reported History Additional Past Medical History / Comment(s): chronic back pain, gestational diabetes x 2 History of Any Multi-Drug Resistant Organisms: None Reported Past Surgical History: Back Surgery, Section Additional Past Surgical History / Comment(s): 2x back laminectomy, 1 fusion, Past Anesthesia/Blood Transfusion Reactions: No Reported Reaction Past Psychological History: No Psychological Hx Reported Smoking Status: Never smoker Past Alcohol Use History: None Reported Past Drug Use History: None Reported - Past Family History Mother Family Medical History: No Reported History General Exam Limitations: no limitations General appearance: alert, in no apparent distress Head exam: Present: atraumatic, normocephalic, normal inspection Eye exam: Present: normal appearance, PERRL, EOMI. Absent: scleral icterus, conjunctival injection, periorbital swelling ENT exam: Present: normal exam, mucous membranes moist Neck exam: Present: normal inspection. Absent: tenderness, meningismus, lymphadenopathy Respiratory exam: Present: normal lung sounds bilaterally. Absent: respiratory distress, wheezes, rales, rhonchi, stridor Cardiovascular Exam: Present: regular rate, normal rhythm, normal heart sounds. Absent: systolic murmur, diastolic murmur, rubs, gallop, clicks GI/Abdominal exam: Present: soft, normal bowel sounds. Absent: distended, tenderness, guarding, rebound, rigid Extremities exam: Present: normal inspection, full ROM, normal capillary refill. Absent: tenderness, pedal edema, joint swelling, calf tenderness Back exam: Present: normal inspection Neurological exam: Present: alert, oriented X3, CN II-XII intact Psychiatric exam: Present: normal affect, normal mood Skin exam: Present: warm, dry, intact, normal color. Absent: rash Course Vital Signs 09/15/23 09/15/23 13:31 16:45 Temperature 100.9 F H Pulse Rate 100 80 Respiratory 18 18 Rate Blood Pressure 113/76 O2 Sat by Pulse 98 100 Oximetry Medical Decision Making - Medical Decision Making Was pt. sent in by a medical professional or institution (, PA, GRANTS MANAGER, urgent care, hospital, or half-way...) When possible be specific @ -No Did you speak to anyone other than the patient for history (EMS, parent, family, police, friend...)? What history was obtained from this source @ -No Did you review nursing and triage notes (agree or disagree)? Why? @ -I reviewed and agree with nursing and triage notes Were old charts reviewed (outside hosp., previous admission, EMS record, old EKG, old radiological studies, urgent care reports/EKG's, half-way records)? Report findings @ -No old charts were reviewed Differential Diagnosis (chest pain, altered mental status, abdominal pain women, abdominal pain men, vaginal bleeding, weakness, fever, dyspnea, syncope, headache, dizziness, GI bleed, back pain, seizure, CVA, palpatations, mental health, musculoskeletal)? @ -Differential Fever: Pneumonia, viral URI, endocarditis, myocarditis, pericarditis, otitis, sinusitis, peritonsillar Abscess, retropharyngeal Abscess, epiglottitis, peritonitis, appendicitis, [place] cystitis, diverticulitis, hepatitis, colitis, UTI, PID, TOA, pyelonephritis, prostatitis, epididymitis, meningitis, encephalitis, pulmonary embolism, CVA, thyroid storm, pancreatitis, adrenal crisis, cavernous sinus thrombosis, this is not meant to be an all-inclusive list. EKG interpreted by me (3pts min.). @ -Not done X-rays interpreted by me (1pt min.). @ -None done CT interpreted by me (1pt min.). @ -None done U/S interpreted by me (1pt. min.). @ -None done What testing was considered but not performed or refused? (CT, X-rays, U/S, labs)? Why? @ -None What meds were considered but not given or refused? Why? @ -None Did you discuss the management of the patient with other professionals (professionals i.e. , PA, GRANTS MANAGER, lab, RT, psych nurse, vp digital marketing social media and crm, senior payroll manager, teacher, radio officer, welfare case worker)? Give summary @ -No Was smoking cessation discussed for >3mins.? @ -No Was critical care preformed (if so, how long)? @ -No Were there social determinants of health that impacted care today? How? (Homelessness, low income, unemployed, alcoholism, drug addiction, transportation, low edu. Level, literacy, decrease access to med. care, intermediate, rehab)? @ -No Was there de-escalation of care discussed even if they declined (Discuss DNR or withdrawal of care, Hospice)? DNR status @ -No What co-morbidities impacted this encounter? (DM, HTN, Smoking, COPD, CAD, Cancer, CVA, ARF, Chemo, Hep., AIDS, mental health diagnosis, sleep apnea, morbid obesity)? @ -None Was patient admitted / discharged? Hospital course, mention meds given and route, prescriptions, significant lab abnormalities, going to OR and other pertinent info. @ -Upon arrival patient was placed into room 33. She is swabbed and found to be influenza positive. She is given a migraine cocktail. Reports improvement in her symptoms. She was offered Tamiflu for treatment however refuses. Patient will be discharged home and instructed to take Motrin and Tylenol for symptom control. Follow-up with her doctor and return for any new or worsening symptoms Undiagnosed new problem with uncertain prognosis? @ -No Drug Therapy requiring intensive monitoring for toxicity (Heparin, Nitro, Insulin, Cardizem)? @ -No Were any procedures done? @ -No Diagnosis/symptom? @ -Acute pyrexia, influenza A, migraine headache Acute, or Chronic, or Acute on Chronic? @ -Acute Uncomplicated (without systemic symptoms) or Complicated (systemic symptoms)? @ -Complicated Side effects of treatment? @ -No Exacerbation, Progression, or Severe Exacerbation? @ -No Poses a threat to life or bodily function? How? (Chest pain, [place], [place], pneumonia, PE, COPD, DKA, ARF, appy, cholecystitis, CVA, Diverticulitis, Homicidal, Suicidal, threat to staff... and all critical care pts) @ -No - Lab Data Lab Results 09/15/23 Range/Units 13:43 Influenza Type A (PCR) Detected A (Not Detectd) Influenza Type B (PCR) Not Detected (Not Detectd) RSV (PCR) Not Detected (Not Detectd) SARS-CoV-2 (PCR) Not Detected (Not Detectd) Disposition Clinical Impression: Influenza A, Pyrexia, Migraine Disposition: HOME SELF-CARE Condition: Stable Instructions (If sedation given, give patient instructions): Influenza (ED) Additional Instructions: Alternate taking Motrin and Tylenol every 4 hours. Increase your fluid intake. Follow-up with your doctor and return should you have any new or worsening symptoms Prescriptions: Ibuprofen 600 mg PO Q8H #30 tab Acetaminophen Tab [Tylenol] 650 mg PO Q8HR #30 tab Is patient prescribed a controlled substance at d/c from ED?: No Referrals: Song Rojo MD [Primary Care Provider] - 1-2 days Time of Disposition: 15:50
[2023-09-15 16:49] VITALS: PULSE 80
== END 2023-09-15 16:46 | disposition home or self-care (01) ==
LOC: EC 13:26
DX: J10.1 Influenza due to other identified influenza virus with other respiratory manifestations (principal); G43.909 Migraine, unspecified, not intractable, without status migrainosus; Z79.82 Long term (current) use of aspirin; Z20.822 Contact with and (suspected) exposure to COVID-19; Z88.5 Allergy status to narcotic agent
CPT/HCPCS: 87636; 99283; 96374; 96375 ×2; 96361; J1200; J1100; J2765

== ENCOUNTER 2024-03-16 19:11 | Emergency (ER) | payer OTHER ==
[2024-03-16 19:17] VITALS: RESP 18; TEMP 98.2
--- NOTE | 2024-03-16 20:09 | ED ---
Lower Extremity Injury HPI - General Chief Complaint: Extremity Injury, Lower Stated Complaint: Right ankle injury Time Seen by Provider: 03/16/24 19:30 Source: patient, RN notes reviewed Mode of arrival: ambulatory Limitations: no limitations - History of Present Illness Initial Comments: 43-year-old female presenting with right ankle pain x 2 months. States over the past couple months she has had pain with weightbearing on both medial and lateral aspects of her right ankle. Denies trauma or injury. Denies redness or swelling. Denies calf pain or other injuries. Denies tingling or numbness in the foot. - Related Data Home Medications Medication Instructions Recorded Confirmed Aspirin/Acetaminophen/Caffeine 1 tab PO Q8H PRN 04/13/23 04/13/23 [Excedrin Migraine Caplet] HYDROcodone/APAP 10-325MG [[place] 1 tab PO TID PRN 04/13/23 04/13/23 10-325] Previous Rx's Medication Instructions Recorded Ondansetron Odt [Zofran Odt] 4 mg PO Q8HR PRN #10 tab 04/13/23 Acetaminophen Tab [Tylenol] 650 mg PO Q8HR #30 tab 09/15/23 Ibuprofen 600 mg PO Q8H #30 tab 09/15/23 Allergies Allergy/AdvReac Type Severity Reaction Status Date / Time codeine AdvReac Severe Makes Verified 03/16/24 19:17 patient blackout morphine AdvReac Itching Verified 03/16/24 19:17 Review of Systems ROS Statement: Those systems with pertinent positive or pertinent negative responses have been documented in the HPI. ROS Other: All systems not noted in ROS Statement are negative. Past Medical History Past Medical History: No Reported History Additional Past Medical History / Comment(s): chronic back pain, gestational diabetes x 2 History of Any Multi-Drug Resistant Organisms: None Reported Past Surgical History: Back Surgery, Section Additional Past Surgical History / Comment(s): 2x back laminectomy, 1 fusion, Past Anesthesia/Blood Transfusion Reactions: No Reported Reaction Past Psychological History: No Psychological Hx Reported Smoking Status: Never smoker Past Alcohol Use History: None Reported Past Drug Use History: None Reported - Past Family History Mother Family Medical History: No Reported History General Exam Limitations: no limitations General appearance: alert, in no apparent distress Head exam: Present: atraumatic, normocephalic, normal inspection Right Lower Leg exam: Present: normal inspection, full ROM. Absent: tenderness, swelling Ankle exam: Present: normal inspection, full ROM. Absent: tenderness, swelling Foot/Toe exam: Present: normal inspection (No erythema or edema of the ankle.), full ROM. Absent: tenderness, swelling Neurovascular tendon exam: Present: no vascular compromise. Absent: pulse defic it, abnormal cap refill, motor deficit, sensory deficit Course Vital Signs 03/16/24 03/16/24 19:15 21:09 Temperature 98.2 F Pulse Rate 89 72 Respiratory 18 18 Rate Blood Pressure 105/70 118/81 O2 Sat by Pulse 97 99 Oximetry Medical Decision Making - Medical Decision Making Was pt. sent in by a medical professional or institution (, PA, PACKAGING MATERIALS INSPECTOR, urgent care, hospital, or [facility]...) When possible be specific @ -No Did you speak to anyone other than the patient for history (EMS, parent, family, police, friend...)? What history was obtained from this source @ -No Did you review nursing and triage notes (agree or disagree)? Why? @ -I reviewed and agree with nursing and triage notes Were old charts reviewed (outside hosp., previous admission, EMS record, old EKG, old radiological studies, urgent care reports/EKG's, [facility] records)? Report findings @ -No old charts were reviewed Differential Diagnosis (chest pain, altered mental status, abdominal pain women, abdominal pain men, vaginal bleeding, weakness, fever, dyspnea, syncope, headache, dizziness, GI bleed, back pain, seizure, CVA, palpatations, mental health, musculoskeletal)? @ -Differential Musculoskeletal Muscular strain, contusion, ligament sprain, fracture, arthritis, septic arthritis, bursitis, cellulitis, muscle spasm, nerve compression, DVT, arterial occlusion, herpes zoster, electrolyte abnormality, tumor.... This is not meant to be in all inclusive list EKG interpreted by me (3pts min.). @ -None X-rays interpreted by me (1pt min.). @ -X-ray right ankle reveals acute process, subcutaneous swelling around ankle, likely underlying soft tissue injury CT interpreted by me (1pt min.). @ -None done U/S interpreted by me (1pt. min.). @ -None done What testing was considered but not performed or refused? (CT, X-rays, U/S, labs)? Why? @ -None What meds were considered but not given or refused? Why? @ -None Did you discuss the management of the patient with other professionals (professionals i.e. , PA, PACKAGING MATERIALS INSPECTOR, lab, RT, psych nurse, social service assistant, digital engineer, teacher, reserve officer, case specialist)? Give summary @ -No Was smoking cessation discussed for >3mins.? @ -No Was critical care preformed (if so, how long)? @ -No Were there social determinants of health that impacted care today? How? (Homelessness, low income, unemployed, alcoholism, drug addiction, transportation, low edu. Level, literacy, decrease access to med. care, intermediate, rehab)? @ -No Was there de-escalation of care discussed even if they declined (Discuss DNR or withdrawal of care, Hospice)? DNR status @ -No What co-morbidities impacted this encounter? (DM, HTN, Smoking, COPD, CAD, Cancer, CVA, ARF, Chemo, Hep., AIDS, mental health diagnosis, sleep apnea, morbid obesity)? @ -None Was patient admitted / discharged? Hospital course, mention meds given and route, prescriptions, significant lab abnormalities, going to OR and other pertinent info. @ -Patient was discharged. Patient was seen and evaluated for right ankle pain x 2 months. Denies trauma or injury. Neurovascularly intact. No red flag symptoms or sign of bacterial infection. X-ray reveals no acute process. Domingo wrap applied. Diagnosis of right ankle sprain discussed with patient. Supportive care discussed. Return parameters discussed and patient is agreeable to plan. Case was discussed with my ED attending Dr. Lion. Patient discharged in stable condition. Undiagnosed new problem with uncertain prognosis? @ -No Drug Therapy requiring intensive monitoring for toxicity (Heparin, Nitro, Insulin, Cardizem)? @ -No Were any procedures done? @ -No Diagnosis/symptom? @ -Right ankle sprain Acute, or Chronic, or Acute on Chronic? @ -Acute Uncomplicated (without systemic symptoms) or Complicated (systemic symptoms)? @ -Uncomplicated Side effects of treatment? @ -No Exacerbation, Progression, or Severe Exacerbation? @ -No Poses a threat to life or bodily function? How? (Chest pain, [place], [place], pneumonia, PE, COPD, DKA, ARF, appy, cholecystitis, CVA, Diverticulitis, Homicidal, Suicidal, threat to staff... and all critical care pts) @ -No Disposition Clinical Impression: Right ankle sprain Disposition: HOME SELF-CARE Condition: Stable Instructions (If sedation given, give patient instructions): Ankle Sprain (ED) Additional Instructions: Elevate and ice affected area. Take ibuprofen as needed for pain and swelling. Please return to the Emergency Department if symptoms worsen or any other concerns. Is patient prescribed a controlled substance at d/c from ED?: No Referrals: Song Rojo MD [Primary Care Provider] - 1-2 days Time of Disposition: 20:58
--- NOTE | 2024-03-16 20:32 | XR ---
EXAMINATION TYPE: XR ankle complete RT DATE OF EXAM: 03/16/2024 8:18 PM CLINICAL INDICATION: Female, 43 years old with history of right ankle pain; [facility] COMPARISON: None TECHNIQUE: XR ankle complete RT; ankle is imaged in frontal, lateral and oblique projections. FINDINGS: There is no evidence of acute osseous pathology. No evidence of subluxation or dislocation. Kager's fat pad is intact. Mild soft tissue swelling around the ankle. No radiopaque foreign bodies are ident ified. Calcaneal Achilles enthesophyte. Calcaneal plantar spurring is present. IMPRESSION: 1. No evidence of acute fracture. 2. Subcutaneous swelling around the ankle likely secondary to underlying soft tissue injury.
[2024-03-16 21:10] VITALS: BP 118/81; PULSE 72
== END 2024-03-16 21:10 | disposition home or self-care (01) ==
LOC: EC 19:11
DX: S93.401A Sprain of unspecified ligament of right ankle, initial encounter (principal); Z88.5 Allergy status to narcotic agent; X58.XXXA Exposure to other specified factors, initial encounter
CPT/HCPCS: 99283

== ENCOUNTER 2024-04-27 07:07 | Emergency (ER) | payer OTHER ==
[2024-04-27 07:17] VITALS: BP 129/83; PULSE 76; RESP 20; TEMP 97.9
[2024-04-27] MEDS: SODIUM CHLORIDE 0.9% 1,000 ML IV ONE (07:39)
[2024-04-27] MEDS: KETOROLAC 15 MG/ML 1 ML VIAL IVP STA (07:41)
[2024-04-27] MEDS: ONDANSETRON 4 MG/2 ML VIAL IVP STA (07:42)
--- NOTE | 2024-04-27 07:47 | ED ---
General Adult HPI - General Chief complaint: Nausea/Vomiting/Diarrhea Stated complaint: Antibiotic Allergic Rx Time Seen by Provider: 04/27/24 07:09 Source: patient, RN notes reviewed, old records reviewed Mode of arrival: ambulatory Limitations: no limitations - History of Present Illness Initial comments: 43-year-old female presenting with headache, nausea vomiting after starting zepbound, for weight loss on Sunday. Patient has generalized abdominal discomfort, frequent vomiting. She has a generalized headache as well. No fever. - Related Data Home Medications Medication Instructions Recorded Confirmed Aspirin/Acetaminophen/Caffeine 1 tab PO Q8H PRN 04/13/23 04/13/23 [Excedrin Migraine Caplet] HYDROcodone/APAP 10-325MG [[place] 1 tab PO TID PRN 04/13/23 04/13/23 10-325] Previous Rx's Medication Instructions Recorded Ondansetron Odt [Zofran Odt] 4 mg PO Q8HR PRN #10 tab 04/13/23 Acetaminophen Tab [Tylenol] 650 mg PO Q8HR #30 tab 09/15/23 Ibuprofen 600 mg PO Q8H #30 tab 09/15/23 Allergies Allergy/AdvReac Type Severity Reaction Status Date / Time codeine AdvReac Severe Makes Verified 04/27/24 07:17 patient blackout morphine AdvReac Itching Verified 04/27/24 07:17 Review of Systems ROS Statement: Those systems with pertinent positive or pertinent negative responses have been documented in the HPI. ROS Other: All systems not noted in ROS Statement are negative. Past Medical History Past Medical History: No Reported History Additional Past Medical History / Comment(s): chronic back pain, gestational diabetes x 2 History of Any Multi-Drug Resistant Organisms: None Reported Past Surgical History: Back Surgery, Section Additional Past Surgical History / Comment(s): 2x back laminectomy, 1 fusion, Past Anesthesia/Blood Transfusion Reactions: No Reported Reaction Past Psychological History: No Psychological Hx Reported Smoking Status: Never smoker Past Alcohol Use History: None Reported Past Drug Use History: None Reported - Past Family History Mother Family Medical History: No Reported History General Exam Limitations: no limitations General appearance: alert, in no apparent distress Head exam: Present: atraumatic, normocephalic Eye exam: Present: normal appearance, PERRL ENT exam: Present: mucous membranes dry Neck exam: Present: normal inspection. Absent: tenderness, meningismus Respiratory exam: Present: normal lung sounds bilaterally. Absent: respiratory distress, wheezes Cardiovascular Exam: Present: regular rate, normal rhythm GI/Abdominal exam: Present: soft. Absent: distended, tenderness, guarding Extremities exam: Present: normal inspection, normal capillary refill Neurological exam: Present: alert, oriented X3, CN II-XII intact Psychiatric exam: Present: normal affect, normal mood Skin exam: Present: warm, dry, intact Course Vital Signs 04/27/24 07:14 Temperature 97.9 F Pulse Rate 76 Respiratory 20 Rate Blood Pressure 129/83 O2 Sat by Pulse 98 Oximetry Medical Decision Making - Medical Decision Making Was pt. sent in by a medical professional or institution (, FERNANDO, KEY PUNCH OPERATOR, urgent care, hospital, or long term...) When possible be specific @ -No Did you speak to anyone other than the patient for history (EMS, parent, family, police, friend...)? What history was obtained from this source @ -No Did you review nursing and triage notes (agree or disagree)? Why? @ -I reviewed and agree with nursing and triage notes Were old charts reviewed (outside hosp., previous admission, EMS record, old EKG, old radiological studies, urgent care reports/EKG's, long term records)? Report findings @ -No old charts were reviewed Differential Diagnosis: Medication side effect, gastroenteritis, viral illness EKG interpreted by me (3pts min.). @ -As above X-rays interpreted by me (1pt min.). @ -None done CT interpreted by me (1pt min.). @ -None done U/S interpreted by me (1pt. min.). @ -None done What testing was considered but not performed or refused? (CT, X-rays, U/S, labs)? Why? @ -None What meds were considered but not given or refused? Why? @ -None Did you discuss the management of the patient with other professionals (professionals i.e. FERNANDO Massey, KEY PUNCH OPERATOR, lab, RT, psych nurse, social sciences lecturer, sanitation worker cleaning equipment, teacher, nursing officer, pillowcase maker)? Give summary @ -No Was smoking cessation discussed for >3mins.? @ -No Was critical care preformed (if so, how long)? @ -No Were there social determinants of health that impacted care today? How? (Homelessness, low income, unemployed, alcoholism, drug addiction, transportation, low edu. Level, literacy, decrease access to med. care, [facility], r ehab)? @ -No Was there de-escalation of care discussed even if they declined (Discuss DNR or withdrawal of care, Hospice)? DNR status @ -No What co-morbidities impacted this encounter? (DM, HTN, Smoking, COPD, CAD, Cancer, CVA, ARF, Chemo, Hep., AIDS, mental health diagnosis, sleep apnea, morbid obesity)? @ -None Was patient admitted / discharged? Hospital course, mention meds given and route, prescriptions, significant lab abnormalities, going to OR and other pertinent info. @43-year-old female recently started GLP-1 agonist for weight loss with side effects after initial injection of headache, nausea vomiting. Patient well- appearing with stable vitals. Given IV fluids, Toradol, Zofran for symptomatic treatment. Laboratory studies including CBC CMP are unremarkable. Patient will monitor symptoms, and follow-up with her primary care provider regarding the dose of this medication and if she should continue. Undiagnosed new problem with uncertain prognosis? @ -No Drug Therapy requiring intensive monitoring for toxicity (Heparin, Nitro, Insulin, Cardizem)? @ -No Were any procedures done? @ -No Diagnosis/symptom? @Medication side effect, nausea vomiting Acute, or Chronic, or Acute on Chronic? @ -Acute Uncomplicated (without systemic symptoms) or Complicated (systemic symptoms)? @ -Default Side effects of treatment? @ -No Exacerbation, Progression, or Severe Exacerbation? @ -No Poses a threat to life or bodily function? How? (Chest pain, [place], [place], pneumonia, PE, COPD, DKA, ARF, appy, cholecystitis, CVA, Diverticulitis, Homicidal, Suicidal, threat to staff... and all critical care pts) @ -No - Lab Data Result diagrams: 04/27/24 07:45 04/27/24 07:45 Lab Results 04/27/24 04/27/24 Range/Units 07:45 07:45 WBC 5.2 (3.8-10.6) k/uL RBC 4.42 (3.80-5.40) m/uL Hgb 13.0 (11.4-16.0) gm/dL Hct 38.0 (34.0-46.0) % MCV 85.8 (80.0-100.0) fL MCH 29.4 (25.0-35.0) pg MCHC 34.3 (31.0-37.0) g/dL RDW 12.9 (11.5-15.5) % Plt Count 272 (150-450) k/uL MPV 7.0 Neutrophils % 63 % Lymphocytes % 26 % Monocytes % 6 % Eosinophils % 2 % Basophils % 1 % Neutrophils # 3.3 (1.3-7.7) k/uL Lymphocytes # 1.4 (1.0-4.8) k/uL Monocytes # 0.3 (0-1.0) k/uL Eosinophils # 0.1 (0-0.7) k/uL Basophils # 0.0 (0-0.2) k/uL Sodium 137 (137-145) mmol/L Potassium 4.2 (3.5-5.1) mmol/L Chloride 105 (98-107) mmol/L Carbon Dioxide 23 (22-30) mmol/L Anion Gap 9 mmol/L BUN 12 (7-17) mg/dL Creatinine 0.74 (0.52-1.04) mg/dL Est GFR (CKD-EPI)AfAm >90 (>60 ml/min/1.73 sqM) Est GFR (CKD-EPI)NonAf >90 (>60 ml/min/1.73 sqM) Glucose 92 (74-99) mg/dL Calcium 9.2 (8.4-10.2) mg/dL Total Bilirubin 1.1 (0.2-1.3) mg/dL AST 27 (14-36) U/L ALT 21 (4-34) U/L Alkaline Phosphatase 43 (38-126) U/L Total Protein 7.3 (6.3-8.2) g/dL Albumin 4.4 (3.5-5.0) g/dL Disposition Clinical Impression: Dehydration, Medication side effects Disposition: HOME SELF-CARE Condition: Fair Instructions (If sedation given, give patient instructions): Acute Nausea and Vomiting (ED), Adverse Drug Reaction (ED) Is patient prescribed a controlled substance at d/c from ED?: No Referrals: Song Rojo MD [Primary Care Provider] - 1-2 days Time of Disposition: 08:10
[2024-04-27 07:53] LABS: Basophils % (A) 1 %; Eosinophils # (A) 0.1 k/uL (0-0.7); Eosinophils % (A) 2 %; Lymphocytes # (A) 1.4 k/uL (1.0-4.8); Lymphocytes % (A) 26 %; MCH 29.4 pg (25.0-35.0); MCHC 34.3 g/dL (31.0-37.0); MCV 85.8 fL (80.0-100.0); Monocytes # (A) 0.3 k/uL (0-1.0); Monocytes % (A) 6 %; Neutrophils # (A) 3.3 k/uL (1.3-7.7); Neutrophils % (A) 63 %; Platelet Count 272 k/uL (150-450); RBC 4.42 m/uL (3.80-5.40); RDW 12.9 % (11.5-15.5); WBC 5.2 k/uL (3.8-10.6)
[2024-04-27 08:03] LABS: ALT 21 U/L (4-34); African American GFR (CKD) >90 (>60 ml/min/1.73 sqM); Albumin 4.4 g/dL (3.5-5.0); Anion Gap 9 mmol/L; Blood Urea Nitrogen 12 mg/dL (7-17); Calcium 9.2 mg/dL (8.4-10.2); Carbon Dioxide 23 mmol/L (22-30); Chloride 105 mmol/L (98-107); Glucose 92 mg/dL (74-99); Non-African American GFR(CKD) >90 (>60 ml/min/1.73 sqM); Sodium 137 mmol/L (137-145); Total Bilirubin 1.1 mg/dL (0.2-1.3); Total Protein 7.3 g/dL (6.3-8.2)
[2024-04-27 08:06] LABS: AST 27 U/L (14-36); Alkaline Phosphatase 43 U/L (38-126); Potassium 4.2 mmol/L (3.5-5.1)
== END 2024-04-27 09:05 | disposition home or self-care (01) ==
LOC: EC 07:07
CPT/HCPCS: 36415; 80053; 85025; 96361; 96374; 96375; 99284